=== PATIENT | female | born 2000 | race Two or more races ===

== ENCOUNTER 2022-11-05 00:10 | Inpatient (IN) ==
[2022-11-05] MEDS ORDERED: LIDOCAINE 1% LOCAL 20 ML VIAL INFIL PRN (01:11)
[2022-11-05] MEDS ORDERED: OXYTOCIN 30 UNITS/500 ML BAG IV PRN ×2 (01:11→01:13)
--- NOTE | 2022-11-05 01:15 | History & Physical Report ---
Date of Service November 05, 2022 Assessment & Plan (1) SROM (spontaneous rupture of membranes): (2) with 39 completed weeks gestation: Plan fetus category one. Admit for srom. Discussed plan of care with reconciling clerk. Would plan to allow some time for normal labor and progress. If by 6 hours s/p srom, not making any progress, would recommend pitocin. Explained what pit is and does. Will explain her pain control options. Although he speaks some Luxembourger, she speaks and understands really none and so communication will need to be by reconciling clerk. Per records, we have had difficulty getting a Uzebek reconciling clerk at times but fortunately have one now. History of Present Illness Chief Complaint: srom Primary Care Provider: Apoorva Gallardo MD Patient is a 22yo[place] female who presents to labor and delivery at 39 5/7 weeks with complaints of leaking of fluid since 11pm. She notes low back pain for a couple of days and some discomfort that comes and goes. She had a little bit of bleeding. +fm. Having a boy. and Delivery Plans Late care start at 16wk Speaks CAMBODIAN, needs reconciling clerk Flu shot given 05/25/22 SB OB Labs: Blood Type B Positive 05/25/22 Antibody Screen NEGATIVE 05/25/22 Hemoglobin 11.5 g/dl (12.0-16.0) L 08/15/22 Hematocrit 33.4 % (34.1-44.9) L 08/15/22 Mean Corpuscular Volume 90.8 fL (80.0-100.0) 05/25/22 Platelet Count 193 K/uL (130-400) 05/25/22 Rubella IgG Antibody Immune (Immune) 05/25/22 Rapid Plasma Reagin Nonreactive (Nonreactive) 05/25/22 Hepatitis B Surface Antigen. NON-REACTIVE (NON-REACTIVE) 05/25/22 Hepatitis C Antibody (EIA) NON-REACTIVE (NON-REACTIVE) 05/25/22 HIV (1&2) Ag and Ab Confirmation NON-REACTIVE (NON-REACTIVE) 05/25/22 Glucose 1 Hour 50 gm Load 154 mg/dl (70-130) H 05/25/22 Maternal Serum Alpha Fetoprotein 32.1 ng/mL 05/25/22 OB Optional Labs: A Chlamydia trachomatis RNA Not Detected (NotDetected) 05/25/22 Neisseria gonorrhoeae RNA Not Detected (NotDetected) 05/25/22 Alpha Fetoprotein Triple Screen SEE NOTE 05/25/22 Labs Reviewed: cfdna-low risk--mln afp neg gbs neg 2 hr gtt x 2 nl Allergies Allergy/AdvReac Type Severity Reaction Status Date / Time No Known Allergies Allergy Verified 11/04/22 09:17 Home Medications Medication Instructions Recorded Confirmed Type prenat.vits,briana,xqf-mpve-sqiry 1 tab PO DAILY 05/20/22 11/05/22 History Patient History Medical History Patient denies significant medical history Surgical History No history of previous surgery S/P appendectomy Pt denies surgical history, but has either a large stretch hazel or RLQ scar suspicious for open appy? 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 Physical Exam Constitutional: WD/WN, vitals as above Cardiovascular: Extremities: + edema (+1); no calf tenderness Gastrointestinal (Abdomen): soft, gravid, nt Psychiatric: A+Ox3, euthymic affect Genitourinary: sse--large amount of mucous and fluid noted sve--1+/50/-2 toco--q5-8,om efm--130s with mod variability, accels to 150s, no decels Results & Data Vital Signs (Past 12 Hours) Vital Signs Temp Pulse Resp BP 11/05/22 00:29 87 127/81 11/05/22 00:25 36.3 C L 18 Code Status & VTE Plan VTE Prophylaxis Plan VTE Prophylaxis will be ordered: No Coding Level of Care Code None Diagnoses SROM (spontaneous rupture of membranes) with 39 completed weeks gestation Z3A.39
[2022-11-05 02:58] LABS: Hematocrit (blood only) 32.8 % (37.0-47.0); Hemoglobin 10.6 g/dl (12.0-16.0); Mean Corpuscular Hemoglobin 27.1 pg (25.0-34.0); Mean Corpuscular Hgb Conc 32.3 g/dL (32.0-36.0); Mean Corpuscular Volume 83.9 fL (80.0-100.0); Mean Platelet Volume 11.5 fL (9.4-12.4); Platelet Count 217 K/uL (130-400); RDW Coefficient of Variation 12.9 % (11.5-14.5); RDW Standard Deviation 38.7 fL (36.4-46.3); Red Blood Count 3.91 M/uL (4.20-5.40)
[2022-11-05] MEDS ORDERED: BUPIVACAINE 0.25% PF 30 ML VIAL ONE ×3 (05:10→21:19)
[2022-11-05] MEDS ORDERED: fentaNYL citrate PF 100 MCG/2 ML VIAL ONE ×3 (05:10→21:19)
[2022-11-05] MEDS ORDERED: LIDOCAINE 2%/EPINEPHRINE 1:200,000 20 ML PF ONE ×2 (05:10→07:23)
--- NOTE | 2022-11-05 05:13 | Labor Progress Brief Note ---
Date of Service November 05, 2022 Subjective Patient resting, not really feeling contractions. Assessment & Plan (1) SROM (spontaneous rupture of membranes): (2) with 39 completed weeks gestation: Plan start pitocin, fetus category one. Admission and Anticipated Discharge Date Admission Date: November 05, 2022 Physical Exam Physical Exam: cx--2/80/-2, bulging bag, but feel head toco--q2-4min efm--140s with mod variability, accels to 160s, no decels Results & Data Vital Signs (Past 12 Hours) Vital Signs Temp Pulse Resp BP 11/05/22 04:44 18 11/05/22 04:44 36.8 C 18 11/05/22 04:03 68 11/05/22 04:03 122/75 11/05/22 02:28 18 11/05/22 02:28 36.8 C 18 11/05/22 00:29 87 127/81 11/05/22 00:25 36.3 C L 18 Coding Level of Care Code None Diagnoses SROM (spontaneous rupture of membranes) with 39 completed weeks gestation Z3A.39
[2022-11-05] MEDS: LACTATED RINGER'S 1,000 ML IV PRN ×5 (05:39→20:11)
[2022-11-05] MEDS: ePHEDrine sulfate 50 MG/ML AMP ONE ×2 (05:48→09:59)
[2022-11-05] MEDS: SODIUM CHLORIDE 0.9% PF INJ 10 ML VIAL ONE ×2 (05:49→08:50)
[2022-11-05] MEDS: fentaNYL 2MCG/ML ROPIVACAINE 1.25MG/ML 100 ML BAG EPI ONE ×3 (05:50→06:43)
[2022-11-05] MEDS ORDERED: ePHEDrine sulfate 50 MG/ML AMP ONE (07:22)
[2022-11-05] MEDS ORDERED: SODIUM CHLORIDE 0.9% PF INJ 10 ML VIAL ONE (07:23)
[2022-11-05] MEDS ORDERED: fentaNYL 2MCG/ML ROPIVACAINE 1.25MG/ML 100 ML BAG EPI ONE (07:24)
--- NOTE | 2022-11-05 08:01 | Anesthesiology Consultation ---
Date of Service November 05, 2022 Assessment & Plan Chart Review Chart Review: Acceptable Risk for Labor Epidural Consults Requested none History Height/Weight Weight: 80 kg Allergies Allergy/AdvReac Type Severity Reaction Status Date / Time No Known Allergies Allergy Verified 11/04/22 09:17 Medications Home Medications Medication Instructions Recorded Confirmed Last Taken prenat.vits,briana,qcm-flkg-tlppl 1 tab PO DAILY 05/20/22 11/05/22 Unknown Active Medications Generic Name Dose Route Start Last Admin Trade Name Freq PRN Reason Stop Dose Admin Lactated Ringer's 1,000 mls @ 125 mls/hr 11/05/22 01:11 11/05/22 07:50 Lr IV 11/07/22 01:10 125 mls/hr .Q8H PRN Infusion L&D Protocol Protocol Oxytocin 30 units in 500 mls @ 3 mls/hr 11/05/22 01:13 11/05/22 06:30 Pitocin IV 11/07/22 01:12 0.18 units/hr .Q24H PRN 3 mls/hr Labor Induction/Augmentation Titration Protocol 0.18 UNITS/HR Past Medical History Medical History Patient denies significant medical history Past Family History Family History Denies family history of Ovarian cancer Breast cancer Colorectal cancer Past Surgical History Surgical History No history of previous surgery S/P appendectomy Pt denies surgical history, but has either a large stretch hazel or RLQ scar suspicious for open appy? Social History Smoking Status: Never smoker Hx Alcohol Use: No Hx Substance Use: No Physical Exam Vital Signs Last Vital Signs Temp 36.8 C 11/05/22 04:44 Pulse 69 11/05/22 07:59 Resp 18 11/05/22 04:44 BP 119/61 11/05/22 07:59 Pulse Ox 99 11/05/22 07:57 Testing Laboratory Results 11/05/22 01:50
[2022-11-05] MEDS ORDERED: NALOXONE HCL 1 MG in SODIUM CHLORIDE 0.9% 1000ML 1,000 ML IV PRN (08:08)
[2022-11-05] MEDS ORDERED: NALBUPHINE HCL INJ 10 MG/ML AMP IV PRN (08:08)
[2022-11-05] MEDS ORDERED: ePHEDrine sulfate 50 MG/ML AMP IV PRN (08:08)
[2022-11-05] MEDS ORDERED: diphenhydrAMINE 50 MG/ML VIAL IV PRN (08:08)
[2022-11-05] MEDS ORDERED: NALOXONE HCL 0.4 MG/1 ML VIAL/CARP IV PRN (08:08)
--- NOTE | 2022-11-05 11:50 | Labor Progress Brief Note ---
Date of Service November 05, 2022 Subjective Comfortable with epidural Assessment & Plan (1) SROM (spontaneous rupture of membranes): Plan: Utilize pit to hold adequate MVU for 2 hours and then will reassess if no earlier indication to do so, as there wouldn't be anything else to change in patient's plan until then. status reassuring and patient comfortable. Admission and Anticipated Discharge Date Admission Date: November 05, 2022 Physical Exam Genitourinary: Has only just begun to be adequate MVU Cervix therefore not reassessed at this time FHT Cat 1 [place] Q1-3 with irregular and grouped pattern Results & Data Vital Signs (Past 12 Hours) Vital Signs Temp Pulse Resp BP Pulse Ox O2 Del Method 11/05/22 07:10 98.2 F 20 11/05/22 07:10 Room Air 11/05/22 11:42 99 11/05/22 11:42 83 11/05/22 11:31 16 11/05/22 11:31 16 11/05/22 11:37 98 11/05/22 11:37 79 11/05/22 11:32 98 11/05/22 11:32 84 11/05/22 11:27 99 11/05/22 11:27 77 11/05/22 11:22 98 11/05/22 11:22 80 11/05/22 11:20 75 11/05/22 11:20 106/54 L 11/05/22 11:17 99 11/05/22 11:17 80 11/05/22 11:00 18 11/05/22 11:00 98.6 F 18 11/05/22 11:12 98 11/05/22 11:12 77 11/05/22 11:00 18 11/05/22 11:00 98.6 F 18 11/05/22 11:07 98 11/05/22 11:07 83 11/05/22 11:04 67 11/05/22 11:04 130/63 11/05/22 11:02 98 11/05/22 11:02 69 11/05/22 10:57 99 11/05/22 10:57 70 11/05/22 10:52 97 11/05/22 10:52 68 11/05/22 10:49 67 11/05/22 10:49 119/62 11/05/22 10:47 99 11/05/22 10:47 69 11/05/22 10:42 98 11/05/22 10:42 72 11/05/22 10:32 16 11/05/22 10:32 16 11/05/22 10:37 99 11/05/22 10:37 72 11/05/22 10:34 72 11/05/22 10:34 113/55 L 11/05/22 10:32 98 11/05/22 10:32 69 11/05/22 10:01 16 11/05/22 10:01 16 11/05/22 10:27 98 11/05/22 10:27 70 11/05/22 10:22 98 11/05/22 10:22 77 11/05/22 10:19 73 11/05/22 10:19 110/61 11/05/22 10:17 99 11/05/22 10:17 74 11/05/22 10:12 97 11/05/22 10:12 71 11/05/22 10:07 98 11/05/22 10:07 69 11/05/22 10:04 74 11/05/22 10:04 121/58 L 11/05/22 10:02 98 11/05/22 10:02 72 11/05/22 09:57 98 11/05/22 09:57 71 11/05/22 09:52 98 11/05/22 09:52 71 11/05/22 09:49 67 11/05/22 09:49 123/57 L 11/05/22 09:47 98 11/05/22 09:47 70 11/05/22 09:42 98 11/05/22 09:42 68 11/05/22 09:30 16 11/05/22 09:30 16 11/05/22 09:37 98 11/05/22 09:37 71 11/05/22 09:00 18 11/05/22 09:00 18 11/05/22 09:33 67 11/05/22 09:33 108/56 L 11/05/22 09:32 98 11/05/22 09:32 68 11/05/22 09:27 99 11/05/22 09:27 77 11/05/22 09:26 114/65 11/05/22 09:22 99 11/05/22 09:22 69 11/05/22 09:19 70 11/05/22 09:19 109/58 L 11/05/22 09:17 98 11/05/22 09:17 84 11/05/22 09:07 16 11/05/22 09:07 98.2 F 16 11/05/22 09:12 99 11/05/22 09:12 78 11/05/22 09:07 100 11/05/22 09:07 82 11/05/22 09:02 100 11/05/22 09:02 76 11/05/22 09:03 76 11/05/22 09:03 119/71 11/05/22 09:01 76 11/05/22 09:01 126/77 11/05/22 08:57 97 11/05/22 08:57 82 11/05/22 08:58 87/56 L 11/05/22 08:56 92 11/05/22 08:55 82 11/05/22 08:56 84 11/05/22 08:55 88/52 L 11/05/22 08:52 96 11/05/22 08:52 77 11/05/22 08:48 69 11/05/22 08:48 87/48 L 11/05/22 08:47 96 11/05/22 08:47 72 11/05/22 07:32 16 11/05/22 07:32 16 11/05/22 08:01 18 11/05/22 08:01 18 11/05/22 08:33 16 11/05/22 08:33 16 11/05/22 08:42 97 11/05/22 08:42 73 11/05/22 08:37 98 11/05/22 08:37 79 11/05/22 08:35 74 11/05/22 08:35 92/51 L 11/05/22 08:32 100 11/05/22 08:32 86 11/05/22 08:27 96 11/05/22 08:27 71 11/05/22 08:22 97 11/05/22 08:22 73 11/05/22 08:17 100 11/05/22 08:17 69 11/05/22 08:16 86 11/05/22 08:16 123/68 11/05/22 08:12 100 11/05/22 08:12 77 03/30/23 08:11 68 11/05/22 08:11 121/64 11/05/22 08:09 68 11/05/22 08:09 118/67 11/05/22 08:07 100 11/05/22 08:07 85 11/05/22 08:07 119/70 11/05/22 08:05 80 11/05/22 08:05 111/59 L 11/05/22 08:02 100 11/05/22 08:02 82 11/05/22 08:03 67 11/05/22 08:03 109/68 11/05/22 08:01 69 11/05/22 08:01 115/58 L 11/05/22 07:59 69 11/05/22 07:59 119/61 11/05/22 07:57 99 11/05/22 07:57 76 11/05/22 07:57 120/58 L 11/05/22 07:55 79 11/05/22 07:55 121/59 L 11/05/22 07:53 80 11/05/22 07:53 115/57 L 11/05/22 07:52 100 11/05/22 07:52 82 11/05/22 07:50 81 11/05/22 07:50 136/61 11/05/22 07:49 83 L 11/05/22 07:49 87 11/05/22 07:47 100 11/05/22 07:47 89 11/05/22 07:47 167/73 H 11/05/22 07:46 86 11/05/22 07:46 159/93 H 11/05/22 07:42 100 11/05/22 07:42 100 H 11/05/22 07:37 100 11/05/22 07:37 90 11/05/22 07:32 100 11/05/22 07:32 77 11/05/22 07:31 70 11/05/22 07:31 107/69 11/05/22 07:27 99 11/05/22 07:27 74 11/05/22 07:22 99 11/05/22 07:22 81 11/05/22 07:05 75 11/05/22 07:05 122/65 11/05/22 05:41 67 11/05/22 05:41 124/68 03/30/23 04:44 18 11/05/22 04:44 98.2 F 18 11/05/22 04:03 68 11/05/22 04:03 122/75 11/05/22 02:28 18 11/05/22 02:28 98.2 F 18 11/05/22 00:29 87 127/81 11/05/22 00:25 97.3 F L 18 Coding Level of Care Code None Diagnoses SROM (spontaneous rupture of membranes)
--- NOTE | 2022-11-05 13:31 | Labor Progress Brief Note ---
Date of Service November 05, 2022 Subjective Comfortable with epidural Assessment & Plan (1) SROM (spontaneous rupture of membranes): Plan: Continue pitocin, epidural, change is occurring. Admission and Anticipated Discharge Date Admission Date: November 05, 2022 Physical Exam Genitourinary: Fht Cat 1 [place] Q2 /-1 copious clear LOF ongoing Results & Data Vital Signs (Past 12 Hours) Vital Signs Temp Pulse Resp BP Pulse Ox O2 Del Method 11/05/22 07:10 98.2 F 20 11/05/22 07:10 Room Air 11/05/22 13:27 98 11/05/22 13:27 76 11/05/22 13:24 93 11/05/22 13:24 98 H 11/05/22 13:22 98 11/05/22 13:22 92 H 11/05/22 13:17 98 11/05/22 13:17 79 11/05/22 13:15 16 11/05/22 13:15 98.6 F 16 11/05/22 13:12 96 11/05/22 13:12 87 11/05/22 13:00 16 11/05/22 13:00 16 11/05/22 13:07 96 11/05/22 13:07 83 11/05/22 13:02 96 11/05/22 13:02 84 11/05/22 12:57 97 11/05/22 12:57 82 11/05/22 12:30 16 11/05/22 12:30 16 11/05/22 12:52 98 11/05/22 12:52 82 11/05/22 12:47 99 11/05/22 12:47 82 11/05/22 12:42 98 11/05/22 12:42 75 11/05/22 12:37 98 11/05/22 12:37 75 11/05/22 12:32 100 11/05/22 12:32 86 11/05/22 12:27 96 11/05/22 12:27 74 11/05/22 12:22 97 11/05/22 12:22 73 11/05/22 12:18 68 11/05/22 12:18 112/55 L 11/05/22 12:17 96 11/05/22 12:17 68 11/05/22 12:12 97 11/05/22 12:12 71 11/05/22 12:05 18 11/05/22 12:05 18 11/05/22 12:07 97 11/05/22 12:07 72 11/05/22 12:02 96 11/05/22 12:02 85 11/05/22 11:57 98 11/05/22 11:57 85 11/05/22 11:52 97 11/05/22 11:52 80 11/05/22 11:48 82 11/05/22 11:48 95/50 L 11/05/22 11:47 97 11/05/22 11:47 81 11/05/22 11:42 99 11/05/22 11:42 83 11/05/22 11:31 16 11/05/22 11:31 16 11/05/22 11:37 98 11/05/22 11:37 79 11/05/22 11:32 98 11/05/22 11:32 84 11/05/22 11:27 99 11/05/22 11:27 77 11/05/22 11:22 98 11/05/22 11:22 80 11/05/22 11:20 75 11/05/22 11:20 106/54 L 11/05/22 11:17 99 11/05/22 11:17 80 11/05/22 11:00 18 11/05/22 11:00 98.6 F 18 11/05/22 11:12 98 11/05/22 11:12 77 11/05/22 11:00 18 11/05/22 11:00 98.6 F 18 11/05/22 11:07 98 11/05/22 11:07 83 11/05/22 11:04 67 11/05/22 11:04 130/63 11/05/22 11:02 98 11/05/22 11:02 69 11/05/22 10:57 99 11/05/22 10:57 70 11/05/22 10:52 97 11/05/22 10:52 68 11/05/22 10:49 67 11/05/22 10:49 119/62 11/05/22 10:47 99 11/05/22 10:47 69 11/05/22 10:42 98 11/05/22 10:42 72 11/05/22 10:32 16 11/05/22 10:32 16 11/05/22 10:37 99 11/05/22 10:37 72 11/05/22 10:34 72 11/05/22 10:34 113/55 L 11/05/22 10:32 98 11/05/22 10:32 69 11/05/22 10:01 16 11/05/22 10:01 16 11/05/22 10:27 98 11/05/22 10:27 70 11/05/22 10:22 98 11/05/22 10:22 77 11/05/22 10:19 73 11/05/22 10:19 110/61 11/05/22 10:17 99 11/05/22 10:17 74 11/05/22 10:12 97 11/05/22 10:12 71 11/05/22 10:07 98 11/05/22 10:07 69 11/05/22 10:04 74 11/05/22 10:04 121/58 L 11/05/22 10:02 98 11/05/22 10:02 72 11/05/22 09:57 98 11/05/22 09:57 71 11/05/22 09:52 98 11/05/22 09:52 71 11/05/22 09:49 67 11/05/22 09:49 123/57 L 11/05/22 09:47 98 11/05/22 09:47 70 11/05/22 09:42 98 11/05/22 09:42 68 11/05/22 09:30 16 11/05/22 09:30 16 11/05/22 09:37 98 11/05/22 09:37 71 11/05/22 09:00 18 11/05/22 09:00 18 11/05/22 09:33 67 11/05/22 09:33 108/56 L 11/05/22 09:32 98 11/05/22 09:32 68 11/05/22 09:27 99 11/05/22 09:27 77 11/05/22 09:26 114/65 11/05/22 09:22 99 11/05/22 09:22 69 11/05/22 09:19 70 11/05/22 09:19 109/58 L 11/05/22 09:17 98 11/05/22 09:17 84 11/05/22 09:07 16 11/05/22 09:07 98.2 F 16 11/05/22 09:12 99 11/05/22 09:12 78 11/05/22 09:07 100 11/05/22 09:07 82 11/05/22 09:02 100 11/05/22 09:02 76 11/05/22 09:03 76 11/05/22 09:03 119/71 11/05/22 09:01 76 11/05/22 09:01 126/77 11/05/22 08:57 97 11/05/22 08:57 82 11/05/22 08:58 87/56 L 11/05/22 08:56 92 11/05/22 08:55 82 11/05/22 08:56 84 11/05/22 08:55 88/52 L 11/05/22 08:52 96 11/05/22 08:52 77 11/05/22 08:48 69 11/05/22 08:48 87/48 L 11/05/22 08:47 96 11/05/22 08:47 72 11/05/22 07:32 16 11/05/22 07:32 16 11/05/22 08:01 18 11/05/22 08:01 18 11/05/22 08:33 16 11/05/22 08:33 16 11/05/22 08:42 97 11/05/22 08:42 73 11/05/22 08:37 98 11/05/22 08:37 79 11/05/22 08:35 74 11/05/22 08:35 92/51 L 11/05/22 08:32 100 11/05/22 08:32 86 11/05/22 08:27 96 11/05/22 08:27 71 11/05/22 08:22 97 11/05/22 08:22 73 11/05/22 08:17 100 11/05/22 08:17 69 11/05/22 08:16 86 11/05/22 08:16 123/68 11/05/22 08:12 100 11/05/22 08:12 77 11/05/22 08:11 68 11/05/22 08:11 121/64 11/05/22 08:09 68 11/05/22 08:09 118/67 11/05/22 08:07 100 11/05/22 08:07 85 11/05/22 08:07 119/70 11/05/22 08:05 80 11/05/22 08:05 111/59 L 11/05/22 08:02 100 11/05/22 08:02 82 11/05/22 08:03 67 11/05/22 08:03 109/68 11/05/22 08:01 69 11/05/22 08:01 115/58 L 11/05/22 07:59 69 11/05/22 07:59 119/61 11/05/22 07:57 99 11/05/22 07:57 76 11/05/22 07:57 120/58 L 11/05/22 07:55 79 11/05/22 07:55 121/59 L 11/05/22 07:53 80 11/05/22 07:53 115/57 L 11/05/22 07:52 100 11/05/22 07:52 82 11/05/22 07:50 81 11/05/22 07:50 136/61 11/05/22 07:49 83 L 11/05/22 07:49 87 11/05/22 07:47 100 11/05/22 07:47 89 11/05/22 07:47 167/73 H 11/05/22 07:46 86 11/05/22 07:46 159/93 H 11/05/22 07:42 100 11/05/22 07:42 100 H 11/05/22 07:37 100 11/05/22 07:37 90 11/05/22 07:32 100 11/05/22 07:32 77 11/05/22 07:31 70 11/05/22 07:31 107/69 11/05/22 07:27 99 11/05/22 07:27 74 11/05/22 07:22 99 11/05/22 07:22 81 11/05/22 07:05 75 11/05/22 07:05 122/65 11/05/22 05:41 67 11/05/22 05:41 124/68 11/05/22 04:44 18 11/05/22 04:44 98.2 F 18 11/05/22 04:03 68 11/05/22 04:03 122/75 11/05/22 02:28 18 11/05/22 02:28 98.2 F 18 Coding Level of Care Code None Diagnoses SROM (spontaneous rupture of membranes)
[2022-11-05] MEDS: fentaNYL 2MCG/ML ROPIVACAINE 1.25MG/ML 100 ML BAG EPI PRN ×2 (15:10→21:04)
--- NOTE | 2022-11-05 16:35 | Labor Progress Brief Note ---
Date of Service November 05, 2022 Subjective Comfortable with epidural Assessment & Plan (1) SROM (spontaneous rupture of membranes): Plan: Continue epidural, pitocin, ROM, making progress slowly but MVU either just adequate or just below. Continue to target 200-250. Admission and Anticipated Discharge Date Admission Date: November 05, 2022 Physical Exam Genitourinary: 5/100/-2 FHT Cat 1 [place] Q2 Pit @ 15 LOF clear [place], IUPC in place. Results & Data Vital Signs (Past 12 Hours) Vital Signs Temp Pulse Resp BP Pulse Ox O2 Del Method 11/05/22 07:10 98.2 F 20 11/05/22 07:10 Room Air 11/05/22 16:27 99 11/05/22 16:27 83 11/05/22 16:22 98 11/05/22 16:22 87 11/05/22 16:17 96 11/05/22 16:17 70 11/05/22 16:12 96 11/05/22 16:12 71 11/05/22 16:07 97 11/05/22 16:07 70 11/05/22 16:02 98 11/05/22 16:02 72 11/05/22 15:57 98 11/05/22 15:57 71 11/05/22 15:00 16 11/05/22 15:00 98.4 F 16 11/05/22 15:52 96 11/05/22 15:52 67 11/05/22 15:30 16 11/05/22 15:30 16 11/05/22 15:47 98 11/05/22 15:47 72 11/05/22 15:44 74 11/05/22 15:44 104/57 L 11/05/22 15:42 98 11/05/22 15:42 70 11/05/22 15:37 99 11/05/22 15:37 71 11/05/22 15:32 98 11/05/22 15:32 79 11/05/22 15:27 98 11/05/22 15:27 72 11/05/22 15:22 98 11/05/22 15:22 74 11/05/22 15:17 97 11/05/22 15:17 71 11/05/22 15:12 100 11/05/22 15:12 77 11/05/22 15:07 98 11/05/22 15:07 75 11/05/22 15:02 100 11/05/22 15:02 88 11/05/22 14:57 100 11/05/22 14:57 87 11/05/22 14:52 96 11/05/22 14:52 78 11/05/22 14:47 97 11/05/22 14:47 74 11/05/22 14:30 16 11/05/22 14:30 16 11/05/22 14:43 82 11/05/22 14:43 102/56 L 11/05/22 14:42 96 11/05/22 14:42 78 11/05/22 14:37 98 11/05/22 14:37 73 11/05/22 14:32 99 11/05/22 14:32 82 11/05/22 14:27 96 11/05/22 14:27 71 11/05/22 14:22 96 11/05/22 14:22 71 11/05/22 14:17 96 11/05/22 14:17 71 11/05/22 14:12 100 11/05/22 14:12 76 11/05/22 14:07 98 11/05/22 14:07 76 11/05/22 14:00 18 11/05/22 14:00 18 11/05/22 14:02 96 11/05/22 14:02 68 11/05/22 13:57 97 11/05/22 13:57 67 11/05/22 13:55 73 11/05/22 13:55 112/62 11/05/22 13:52 96 11/05/22 13:52 72 11/05/22 13:30 18 11/05/22 13:30 18 11/05/22 13:47 97 11/05/22 13:47 70 11/05/22 13:43 69 11/05/22 13:43 103/55 L 11/05/22 13:42 97 11/05/22 13:42 71 11/05/22 13:37 98 11/05/22 13:37 75 11/05/22 13:32 97 11/05/22 13:32 68 11/05/22 13:27 98 11/05/22 13:27 76 11/05/22 13:24 93 11/05/22 13:24 98 H 11/05/22 13:22 98 11/05/22 13:22 92 H 11/05/22 13:17 98 11/05/22 13:17 79 11/05/22 13:15 16 11/05/22 13:15 98.6 F 16 11/05/22 13:12 96 11/05/22 13:12 87 11/05/22 13:00 16 11/05/22 13:00 16 11/05/22 13:07 96 11/05/22 13:07 83 11/05/22 13:02 96 11/05/22 13:02 84 11/05/22 12:57 97 11/05/22 12:57 82 11/05/22 12:30 16 11/05/22 12:30 16 11/05/22 12:52 98 11/05/22 12:52 82 11/05/22 12:47 99 11/05/22 12:47 82 11/05/22 12:42 98 11/05/22 12:42 75 11/05/22 12:37 98 11/05/22 12:37 75 11/05/22 12:32 100 11/05/22 12:32 86 11/05/22 12:27 96 11/05/22 12:27 74 11/05/22 12:22 97 11/05/22 12:22 73 11/05/22 12:18 68 11/05/22 12:18 112/55 L 11/05/22 12:17 96 11/05/22 12:17 68 11/05/22 12:12 97 11/05/22 12:12 71 11/05/22 12:05 18 11/05/22 12:05 18 11/05/22 12:07 97 11/05/22 12:07 72 11/05/22 12:02 96 11/05/22 12:02 85 11/05/22 11:57 98 11/05/22 11:57 85 11/05/22 11:52 97 11/05/22 11:52 80 11/05/22 11:48 82 11/05/22 11:48 95/50 L 11/05/22 11:47 97 11/05/22 11:47 81 11/05/22 11:42 99 11/05/22 11:42 83 11/05/22 11:31 16 11/05/22 11:31 16 11/05/22 11:37 98 11/05/22 11:37 79 11/05/22 11:32 98 11/05/22 11:32 84 11/05/22 11:27 99 11/05/22 11:27 77 11/05/22 11:22 98 11/05/22 11:22 80 11/05/22 11:20 75 11/05/22 11:20 106/54 L 11/05/22 11:17 99 11/05/22 11:17 80 11/05/22 11:00 18 11/05/22 11:00 98.6 F 18 11/05/22 11:12 98 11/05/22 11:12 77 11/05/22 11:00 18 11/05/22 11:00 98.6 F 18 11/05/22 11:07 98 11/05/22 11:07 83 11/05/22 11:04 67 11/05/22 11:04 130/63 11/05/22 11:02 98 11/05/22 11:02 69 11/05/22 10:57 99 11/05/22 10:57 70 11/05/22 10:52 97 11/05/22 10:52 68 11/05/22 10:49 67 11/05/22 10:49 119/62 11/05/22 10:47 99 11/05/22 10:47 69 11/05/22 10:42 98 11/05/22 10:42 72 11/05/22 10:32 16 11/05/22 10:32 16 11/05/22 10:37 99 11/05/22 10:37 72 11/05/22 10:34 72 11/05/22 10:34 113/55 L 11/05/22 10:32 98 11/05/22 10:32 69 11/05/22 10:01 16 11/05/22 10:01 16 11/05/22 10:27 98 11/05/22 10:27 70 11/05/22 10:22 98 11/05/22 10:22 77 11/05/22 10:19 73 11/05/22 10:19 110/61 11/05/22 10:17 99 11/05/22 10:17 74 11/05/22 10:12 97 11/05/22 10:12 71 11/05/22 10:07 98 11/05/22 10:07 69 11/05/22 10:04 74 11/05/22 10:04 121/58 L 11/05/22 10:02 98 11/05/22 10:02 72 11/05/22 09:57 98 11/05/22 09:57 71 11/05/22 09:52 98 11/05/22 09:52 71 11/05/22 09:49 67 11/05/22 09:49 123/57 L 11/05/22 09:47 98 11/05/22 09:47 70 11/05/22 09:42 98 11/05/22 09:42 68 11/05/22 09:30 16 11/05/22 09:30 16 11/05/22 09:37 98 11/05/22 09:37 71 11/05/22 09:00 18 11/05/22 09:00 18 11/05/22 09:33 67 11/05/22 09:33 108/56 L 11/05/22 09:32 98 11/05/22 09:32 68 11/05/22 09:27 99 11/05/22 09:27 77 11/05/22 09:26 114/65 11/05/22 09:22 99 11/05/22 09:22 69 11/05/22 09:19 70 11/05/22 09:19 109/58 L 11/05/22 09:17 98 11/05/22 09:17 84 11/05/22 09:07 16 11/05/22 09:07 98.2 F 16 11/05/22 09:12 99 11/05/22 09:12 78 11/05/22 09:07 100 11/05/22 09:07 82 11/05/22 09:02 100 11/05/22 09:02 76 11/05/22 09:03 76 11/05/22 09:03 119/71 11/05/22 09:01 76 11/05/22 09:01 126/77 11/05/22 08:57 97 11/05/22 08:57 82 11/05/22 08:58 87/56 L 11/05/22 08:56 92 11/05/22 08:55 82 11/05/22 08:56 84 11/05/22 08:55 88/52 L 11/05/22 08:52 96 11/05/22 08:52 77 11/05/22 08:48 69 11/05/22 08:48 87/48 L 11/05/22 08:47 96 11/05/22 08:47 72 11/05/22 07:32 16 11/05/22 07:32 16 11/05/22 08:01 18 11/05/22 08:01 18 11/05/22 08:33 16 11/05/22 08:33 16 11/05/22 08:42 97 11/05/22 08:42 73 11/05/22 08:37 98 11/05/22 08:37 79 11/05/22 08:35 74 11/05/22 08:35 92/51 L 11/05/22 08:32 100 11/05/22 08:32 86 11/05/22 08:27 96 11/05/22 08:27 71 11/05/22 08:22 97 11/05/22 08:22 73 11/05/22 08:17 100 11/05/22 08:17 69 11/05/22 08:16 86 11/05/22 08:16 123/68 11/05/22 08:12 100 11/05/22 08:12 77 11/05/22 08:11 68 11/05/22 08:11 121/64 11/05/22 08:09 68 11/05/22 08:09 118/67 11/05/22 08:07 100 11/05/22 08:07 85 11/05/22 08:07 119/70 11/05/22 08:05 80 11/05/22 08:05 111/59 L 11/05/22 08:02 100 11/05/22 08:02 82 11/05/22 08:03 67 11/05/22 08:03 109/68 11/05/22 08:01 69 11/05/22 08:01 115/58 L 11/05/22 07:59 69 11/05/22 07:59 119/61 11/05/22 07:57 99 11/05/22 07:57 76 11/05/22 07:57 120/58 L 11/05/22 07:55 79 11/05/22 07:55 121/59 L 11/05/22 07:53 80 11/05/22 07:53 115/57 L 11/05/22 07:52 100 11/05/22 07:52 82 11/05/22 07:50 81 11/05/22 07:50 136/61 11/05/22 07:49 83 L 11/05/22 07:49 87 11/05/22 07:47 100 11/05/22 07:47 89 11/05/22 07:47 167/73 H 11/05/22 07:46 86 11/05/22 07:46 159/93 H 11/05/22 07:42 100 11/05/22 07:42 100 H 11/05/22 07:37 100 11/05/22 07:37 90 11/05/22 07:32 100 11/05/22 07:32 77 11/05/22 07:31 70 11/05/22 07:31 107/69 11/05/22 07:27 99 11/05/22 07:27 74 11/05/22 07:22 99 11/05/22 07:22 81 11/05/22 07:05 75 11/05/22 07:05 122/65 11/05/22 05:41 67 11/05/22 05:41 124/68 11/05/22 04:44 18 11/05/22 04:44 98.2 F 18 Coding Level of Care Code None Diagnoses SROM (spontaneous rupture of membranes)
[2022-11-05] MEDS ORDERED: Nursing to Pharmacy Communication SCH (16:45)
--- NOTE | 2022-11-05 21:31 | Anesthesia Procedure Note ---
Date of Service November 05, 2022 Anesthesia Epidural Re-Dose Vital Signs Temp Pulse Resp BP Pulse Ox O2 Del Method 98.8 F 90 16 104/55 L 99 Room Air 11/05/22 20:58 11/05/22 21:28 11/05/22 20:58 11/05/22 21:28 11/05/22 21:27 11/05/22 07:10 Notes Pain Intensity: 10 Dilatation (cm): 6.0 Effacement (%): 100 Called by nursing to evaluate epidural as the patient is having increased pain. The epidural was re-dosed with the following medications after negative aspiration of the epidural catheter for CSF/HEME. 3mL of 0.25% Bupivacaine, 75 mcg of fentanyl After Epidural Re-Dose Mental Status: alert / awake / arousable Pain: improving with treatment Airway Patency, RR, SpO2: stable & adequate BP & HR: stable & adequate
[2022-11-06] MEDS: LACTATED RINGER'S 1,000 ML IV PRN (00:51)
[2022-11-06] MEDS: fentaNYL 2MCG/ML ROPIVACAINE 1.25MG/ML 100 ML BAG EPI PRN (01:51)
[2022-11-06] MEDS ORDERED: AMPICILLIN/SULBACTAM SOD 3,000 MG in 0.9 % SODIUM CHLORIDE 100 ML IV STA (02:42)
[2022-11-06] MEDS ORDERED: ACETAMINOPHEN 650 MG SUPP PR STA (02:46)
--- NOTE | 2022-11-06 04:34 | Labor Progress Brief Note ---
Date of Service November 06, 2022 Subjective Interim events since last note. Patient was comfortable with epidural and steadily dilated to nearly complete. She and FOB were counseled via records associate about what to expect when she became completely dilated, how pushing would work, positioning to expect, and questions were answered. The patient was then given several additional hours to complete dilation and labor down. The patient developed fever / suspected chorioamnionitis around 0230, for which Unasyn IV and tylenol MD were given. The patient was started pushing around 3am from +2 station, in OA position and with adequate-feeling pelvis. Fluid still clear. I have been in the room pushing with the patient for the majority of her second stage, and at the nursing station right outside the room for the remainder. During early pushing, records associate remained available and assisted with communication. After some time the patient was able to organize her pushing efforts and became very effective. tachycardia present but variability always good. Hosiery Repairer service became unavailable "due to scheduled maintenance" and further translation needed to be done via . Around 0415 the patient's tachycardia had been persistent and increased to consistently at or above 180s, and variability between contractions had been seen to decrease enough, that I began the conversation with patient and about options other than . I discussed forceps to assist her in delivering vaginally, with risks of using those for both fetus and mom, and also discussed moving directly to . We also discussed that she can continue to push, however I made clear that I have not yet seen significant progress downwards from +2 station where she began; there has been development of caput but only a small amount of true descent, to +3 with contractions but still not . The confirmed his understanding of my counseling by saying back to me what I had told them about the above options, then translated to his . He relayed that she did not want to agree to forceps or at this time and wanted to keep pushing. They were clearly aware that I had explained the elevated heart rate meant distress, per his speaking this back to me. Her next pushing effort after this discussion did appear a bit more effective than the prior few. Efforts continue at this time per patient wishes. Assessment & Plan Admission and Anticipated Discharge Date Admission Date: November 05, 2022 Results & Data Vital Signs (Past 12 Hours) Vital Signs Temp Pulse Resp BP Pulse Ox 11/06/22 04:20 120 H 106/50 L 11/06/22 04:17 105 H 97 11/06/22 04:12 104 H 97 11/06/22 04:11 142 H 93 11/06/22 04:07 150 H 97 11/06/22 04:02 151 H 97 11/06/22 03:57 105 H 97 11/06/22 03:52 106 H 98 11/06/22 03:47 110 H 98 11/06/22 03:48 127 H 87 L 11/06/22 03:42 83 L 11/06/22 03:42 122 H 11/06/22 03:42 126 H 92 11/06/22 03:37 114 H 97 11/06/22 03:36 131 H 89 L 11/06/22 03:32 113 H 98 11/06/22 03:27 108 H 98 11/06/22 03:22 115 H 98 11/06/22 03:20 113 H 88 L 11/06/22 03:19 117 H 118/59 L 11/06/22 03:17 131 H 80 L 11/06/22 03:12 102 H 100 11/06/22 03:13 123 H 91 11/06/22 03:07 98 H 100 11/06/22 03:06 111 H 92 11/06/22 03:02 97 H 98 11/06/22 02:57 103 H 99 11/06/22 02:52 101 H 99 11/06/22 02:47 97 H 99 11/06/22 02:42 93 H 98 11/06/22 02:41 102.2 F H 11/06/22 02:37 93 H 99 11/06/22 02:32 93 H 99 11/06/22 02:27 98 H 100 11/06/22 02:22 90 100 11/06/22 02:19 98 H 116/79 11/06/22 02:17 90 99 11/06/22 02:12 90 99 11/06/22 02:07 98 H 100 11/06/22 02:02 101 H 99 11/06/22 01:57 123 H 98 11/06/22 01:52 106 H 99 11/06/22 01:50 108 H 123/56 L 11/06/22 01:47 106 H 100 11/06/22 01:42 110 H 98 11/06/22 01:37 107 H 99 11/06/22 01:32 108 H 100 11/06/22 01:27 97 H 99 11/06/22 01:22 95 H 99 11/06/22 01:18 111 H 101/58 L 11/06/22 01:17 101 H 100 11/06/22 01:12 100 H 100 11/06/22 01:07 106 H 100 11/06/22 01:02 101 H 100 11/06/22 00:57 106 H 100 11/06/22 00:52 16 11/06/22 00:52 100.0 F H 106 H 16 100 11/06/22 00:50 102 H 114/56 L 11/06/22 00:47 96 H 99 11/06/22 00:42 104 H 100 11/06/22 00:37 103 H 100 11/06/22 00:32 102 H 99 11/06/22 00:29 110 H 90 11/06/22 00:27 103 H 99 11/06/22 00:22 103 H 99 11/06/22 00:19 113 H 121/59 L 11/06/22 00:17 111 H 99 11/06/22 00:12 104 H 99 11/06/22 00:09 102 H 92 11/06/22 00:07 110 H 100 11/06/22 00:02 112 H 100 11/05/22 23:59 91 11/05/22 23:59 110 H 11/05/22 23:57 97 11/05/22 23:57 106 H 11/05/22 23:52 99 11/05/22 23:52 93 H 11/05/22 23:49 90 11/05/22 23:49 101/58 L 11/05/22 23:47 98 11/05/22 23:47 94 H 11/05/22 23:42 98 11/05/22 23:42 92 H 11/05/22 23:37 97 11/05/22 23:37 79 11/05/22 23:32 97 11/05/22 23:32 86 11/05/22 23:27 98 11/05/22 23:27 90 11/05/22 23:22 98 11/05/22 23:22 84 11/05/22 23:00 16 03/30/23 23:00 99.1 F 16 11/05/22 23:19 84 11/05/22 23:19 100/54 L 11/05/22 23:17 99 11/05/22 23:17 87 11/05/22 23:12 98 11/05/22 23:12 84 11/05/22 23:07 99 11/05/22 23:07 87 11/05/22 23:02 99 11/05/22 23:02 101 H 11/05/22 22:57 98 11/05/22 22:57 86 11/05/22 22:52 98 11/05/22 22:52 86 11/05/22 22:47 98 11/05/22 22:47 81 11/05/22 22:47 130/63 11/05/22 22:46 90 11/05/22 22:46 129/66 11/05/22 22:43 84 11/05/22 22:43 134/71 11/05/22 22:42 98 11/05/22 22:42 84 11/05/22 22:41 86 11/05/22 22:41 133/70 11/05/22 22:40 82 11/05/22 22:40 128/70 11/05/22 22:37 100 11/05/22 22:37 87 11/05/22 22:35 80 11/05/22 22:35 129/66 11/05/22 22:33 76 11/05/22 22:33 132/63 11/05/22 22:32 98 11/05/22 22:32 79 11/05/22 22:32 77 11/05/22 22:32 127/61 11/05/22 22:30 83 11/05/22 22:30 123/60 11/05/22 22:27 99 11/05/22 22:27 75 11/05/22 22:27 127/75 11/05/22 22:26 93 11/05/22 22:25 82 11/05/22 22:26 79 11/05/22 22:25 125/77 11/05/22 22:24 77 11/05/22 22:24 125/73 11/05/22 22:22 100 11/05/22 22:22 77 11/05/22 22:19 74 03/30/23 22:19 129/69 11/05/22 22:17 98 11/05/22 22:17 78 11/05/22 22:17 128/68 11/05/22 22:15 77 11/05/22 22:15 130/69 11/05/22 22:14 92 11/05/22 22:14 79 11/05/22 22:13 77 11/05/22 22:13 133/71 11/05/22 22:12 100 11/05/22 22:12 80 11/05/22 22:11 75 11/05/22 22:11 128/68 11/05/22 22:09 73 11/05/22 22:09 124/67 11/05/22 22:07 99 11/05/22 22:07 76 11/05/22 22:07 125/67 11/05/22 22:06 91 11/05/22 22:05 76 11/05/22 22:06 75 11/05/22 22:05 122/64 11/05/22 22:03 77 11/05/22 22:03 119/61 11/05/22 22:02 99 11/05/22 22:02 75 11/05/22 22:01 77 11/05/22 22:01 119/62 11/05/22 22:00 74 11/05/22 22:00 114/60 11/05/22 21:57 100 11/05/22 21:57 74 11/05/22 21:58 73 11/05/22 21:58 117/67 11/05/22 21:55 80 11/05/22 21:55 121/71 11/05/22 21:53 75 11/05/22 21:53 116/62 11/05/22 21:52 97 11/05/22 21:52 76 11/05/22 21:51 80 11/05/22 21:51 123/66 11/05/22 21:50 80 11/05/22 21:50 114/57 L 11/05/22 21:47 98 11/05/22 21:47 79 11/05/22 21:47 116/68 11/05/22 21:45 81 11/05/22 21:45 112/67 11/05/22 21:44 80 11/05/22 21:44 107/60 11/05/22 21:42 97 11/05/22 21:42 80 11/05/22 21:42 111/59 L 11/05/22 21:40 74 11/05/22 21:40 108/63 11/05/22 21:37 97 11/05/22 21:37 86 11/05/22 21:38 83 11/05/22 21:38 115/83 11/05/22 21:36 94 H 11/05/22 21:36 112/53 L 11/05/22 21:32 99 11/05/22 21:32 95 H 11/05/22 21:32 92 H 11/05/22 21:32 100/50 L 11/05/22 21:29 90 11/05/22 21:29 109/57 L 11/05/22 21:27 99 11/05/22 21:27 88 11/05/22 21:28 90 11/05/22 21:28 104/55 L 11/05/22 21:25 98 H 11/05/22 21:25 115/62 11/05/22 21:22 98 11/05/22 21:22 81 11/05/22 21:17 98 11/05/22 21:17 92 H 11/05/22 21:12 99 11/05/22 21:12 89 11/05/22 21:08 93 11/05/22 21:08 90 11/05/22 21:07 99 11/05/22 21:07 89 11/05/22 21:02 100 11/05/22 21:02 90 11/05/22 21:00 91 11/05/22 21:00 90 11/05/22 20:58 16 11/05/22 20:58 98.8 F 16 11/05/22 20:57 99 11/05/22 20:57 93 H 11/05/22 20:52 99 11/05/22 20:52 93 H 11/05/22 20:47 100 11/05/22 20:47 88 11/05/22 20:44 93 H 11/05/22 20:44 98/53 L 11/05/22 20:42 99 11/05/22 20:42 91 H 11/05/22 20:37 98 11/05/22 20:37 90 11/05/22 20:32 99 11/05/22 20:32 98 H 11/05/22 20:27 100 11/05/22 20:27 93 H 11/05/22 20:22 100 11/05/22 20:22 100 H 11/05/22 20:17 99 11/05/22 20:17 96 H 11/05/22 20:17 94 11/05/22 20:17 97 H 11/05/22 20:12 99 11/05/22 20:12 92 H 11/05/22 20:07 100 11/05/22 20:07 109 H 11/05/22 20:02 100 11/05/22 20:02 95 H 11/05/22 19:57 100 11/05/22 19:57 90 11/05/22 19:52 99 11/05/22 19:52 88 11/05/22 19:47 98 11/05/22 19:47 88 11/05/22 19:44 90 11/05/22 19:44 115/70 11/05/22 19:42 97 11/05/22 19:42 89 11/05/22 19:37 98 11/05/22 19:37 88 11/05/22 19:32 97 11/05/22 19:32 81 11/05/22 19:27 97 11/05/22 19:27 84 11/05/22 19:22 98 11/05/22 19:22 86 11/05/22 19:17 99 11/05/22 19:17 85 11/05/22 19:15 83 11/05/22 19:15 112/69 11/05/22 19:12 100 11/05/22 19:12 77 11/05/22 19:09 16 11/05/22 19:09 98.2 F 16 11/05/22 19:07 99 11/05/22 19:07 87 11/05/22 19:02 100 11/05/22 19:02 92 H 11/05/22 18:57 100 11/05/22 18:57 84 11/05/22 18:52 100 11/05/22 18:52 86 11/05/22 18:47 98 11/05/22 18:47 91 H 11/05/22 18:44 82 11/05/22 18:44 103/55 L 11/05/22 18:42 99 11/05/22 18:42 86 11/05/22 18:00 16 11/05/22 18:00 16 11/05/22 18:37 100 11/05/22 18:37 82 11/05/22 17:30 18 11/05/22 17:30 18 11/05/22 18:32 100 11/05/22 18:32 80 11/05/22 18:27 100 11/05/22 18:27 81 11/05/22 18:22 100 11/05/22 18:22 78 11/05/22 18:17 98 11/05/22 18:17 96 H 11/05/22 17:21 16 11/05/22 17:21 98.2 F 16 11/05/22 18:12 100 11/05/22 18:12 78 11/05/22 18:07 99 11/05/22 18:07 76 11/05/22 18:02 99 11/05/22 18:02 75 11/05/22 17:57 99 11/05/22 17:57 77 11/05/22 17:56 92 11/05/22 17:56 82 11/05/22 17:52 100 11/05/22 17:52 85 11/05/22 17:47 99 11/05/22 17:47 81 11/05/22 17:46 76 11/05/22 17:46 132/58 L 11/05/22 17:42 100 11/05/22 17:42 93 H 11/05/22 17:37 100 11/05/22 17:37 95 H 11/05/22 17:32 100 11/05/22 17:32 90 11/05/22 17:27 99 11/05/22 17:27 89 11/05/22 17:22 99 11/05/22 17:22 84 11/05/22 17:17 99 11/05/22 17:17 74 11/05/22 16:30 16 11/05/22 16:30 16 11/05/22 17:12 99 11/05/22 17:12 80 11/05/22 17:07 97 11/05/22 17:07 88 11/05/22 17:02 97 11/05/22 17:02 75 11/05/22 16:57 100 11/05/22 16:57 84 11/05/22 16:52 97 11/05/22 16:52 81 11/05/22 16:47 98 11/05/22 16:47 84 11/05/22 16:44 85 11/05/22 16:44 97/53 L 11/05/22 16:42 100 11/05/22 16:42 83 11/05/22 16:37 99 11/05/22 16:37 89 11/05/22 16:32 97 11/05/22 16:32 92 H 11/05/22 16:27 99 11/05/22 16:27 83 Coding Level of Care Code None Diagnoses
[2022-11-06] MEDS ORDERED: CITRIC ACID/SODIUM CITRATE 15 ML UDC ONE (04:55)
[2022-11-06] MEDS ORDERED: ACETAMINOPHEN 1,000 MG/100 ML VIAL IV STA (04:56)
[2022-11-06] MEDS ORDERED: AZITHROMYCIN 500 MG in DEXTROSE 5% 250 ML IV STA (04:58)
[2022-11-06] MEDS ORDERED: LACTATED RINGER'S 1,000 ML IV SCH (05:00)
--- NOTE | 2022-11-06 05:07 | Labor Progress Brief Note ---
Date of Service November 06, 2022 Subjective Patient had more questions about forceps and . A new attempt was made to get an [place] steam press tender and the service had been restored, so a steam press tender was used to answer all their questions. At this time the patient declines operative vaginal attempt and requests to proceed directly to section. Orthopedic Designer used for detailed review of consent form along with review of each listed surgical risk one by one. Patient and FOB ask if she is ever able to have a vaginal delivery, and we discussed that is possible but does carry its own risks. Still febrile and now pitocin is turned off so will give IV tylenol now, have discussed with Dr. Emerson and he has no concerns with use of that drug as we are heading back to OR. I think it likely she absorbed little if any of the prior rectal suppository due to BM occurring during early pushing. Will also give Ancef and Azithro for periop abx, patient has already received 1x dose Unasyn. Dr. Glasgow aware and able to come in and assist with case. FHT currently 190 with moderate variability and accels. Ctx Q2-4 with pit turned off. Fluid remains clear. Assessment & Plan Admission and Anticipated Discharge Date Admission Date: November 05, 2022 Results & Data Vital Signs (Past 12 Hours) Vital Signs Temp Pulse Resp BP Pulse Ox 11/06/22 04:57 104 H 99 11/06/22 04:52 105 H 96 11/06/22 04:47 97 H 98 11/06/22 04:43 102.9 F H 11/06/22 04:42 102 H 97 11/06/22 04:37 108 H 97 11/06/22 04:32 104 H 97 11/06/22 04:27 149 H 90 11/06/22 04:22 116 H 97 11/06/22 04:20 120 H 106/50 L 11/06/22 04:17 105 H 97 11/06/22 04:12 104 H 97 11/06/22 04:11 142 H 93 11/06/22 04:07 150 H 97 11/06/22 04:02 151 H 97 11/06/22 03:57 105 H 97 11/06/22 03:52 106 H 98 11/06/22 03:47 110 H 98 11/06/22 03:48 127 H 87 L 11/06/22 03:42 83 L 11/06/22 03:42 122 H 11/06/22 03:42 126 H 92 11/06/22 03:37 114 H 97 11/06/22 03:36 131 H 89 L 11/06/22 03:32 113 H 98 11/06/22 03:27 108 H 98 11/06/22 03:22 115 H 98 11/06/22 03:20 113 H 88 L 11/06/22 03:19 117 H 118/59 L 11/06/22 03:17 131 H 80 L 11/06/22 03:12 102 H 100 11/06/22 03:13 123 H 91 11/06/22 03:07 98 H 100 11/06/22 03:06 111 H 92 11/06/22 03:02 97 H 98 11/06/22 02:57 103 H 99 11/06/22 02:52 101 H 99 11/06/22 02:47 97 H 99 11/06/22 02:42 93 H 98 11/06/22 02:41 102.2 F H 11/06/22 02:37 93 H 99 11/06/22 02:32 93 H 99 11/06/22 02:27 98 H 100 11/06/22 02:22 90 100 11/06/22 02:19 98 H 116/79 11/06/22 02:17 90 99 11/06/22 02:12 90 99 11/06/22 02:07 98 H 100 11/06/22 02:02 101 H 99 11/06/22 01:57 123 H 98 11/06/22 01:52 106 H 99 11/06/22 01:50 108 H 123/56 L 11/06/22 01:47 106 H 100 11/06/22 01:42 110 H 98 11/06/22 01:37 107 H 99 11/06/22 01:32 108 H 100 11/06/22 01:27 97 H 99 11/06/22 01:22 95 H 99 11/06/22 01:18 111 H 101/58 L 11/06/22 01:17 101 H 100 11/06/22 01:12 100 H 100 11/06/22 01:07 106 H 100 11/06/22 01:02 101 H 100 11/06/22 00:57 106 H 100 11/06/22 00:52 16 11/06/22 00:52 100.0 F H 106 H 16 100 11/06/22 00:50 102 H 114/56 L 11/06/22 00:47 96 H 99 11/06/22 00:42 104 H 100 11/06/22 00:37 103 H 100 11/06/22 00:32 102 H 99 11/06/22 00:29 110 H 90 11/06/22 00:27 103 H 99 11/06/22 00:22 103 H 99 11/06/22 00:19 113 H 121/59 L 11/06/22 00:17 111 H 99 11/06/22 00:12 104 H 99 11/06/22 00:09 102 H 92 11/06/22 00:07 110 H 100 11/06/22 00:02 112 H 100 11/05/22 23:59 91 11/05/22 23:59 110 H 11/05/22 23:57 97 11/05/22 23:57 106 H 11/05/22 23:52 99 11/05/22 23:52 93 H 11/05/22 23:49 90 11/05/22 23:49 101/58 L 11/05/22 23:47 98 11/05/22 23:47 94 H 11/05/22 23:42 98 11/05/22 23:42 92 H 11/05/22 23:37 97 11/05/22 23:37 79 11/05/22 23:32 97 11/05/22 23:32 86 11/05/22 23:27 98 11/05/22 23:27 90 11/05/22 23:22 98 11/05/22 23:22 84 11/05/22 23:00 16 11/05/22 23:00 99.1 F 16 11/05/22 23:19 84 11/05/22 23:19 100/54 L 11/05/22 23:17 99 11/05/22 23:17 87 11/05/22 23:12 98 11/05/22 23:12 84 11/05/22 23:07 99 11/05/22 23:07 87 11/05/22 23:02 99 11/05/22 23:02 101 H 11/05/22 22:57 98 11/05/22 22:57 86 11/05/22 22:52 98 11/05/22 22:52 86 11/05/22 22:47 98 11/05/22 22:47 81 11/05/22 22:47 130/63 11/05/22 22:46 90 11/05/22 22:46 129/66 11/05/22 22:43 84 11/05/22 22:43 134/71 11/05/22 22:42 98 11/05/22 22:42 84 11/05/22 22:41 86 11/05/22 22:41 133/70 11/05/22 22:40 82 11/05/22 22:40 128/70 11/05/22 22:37 100 11/05/22 22:37 87 11/05/22 22:35 80 11/05/22 22:35 129/66 11/05/22 22:33 76 11/05/22 22:33 132/63 11/05/22 22:32 98 11/05/22 22:32 79 11/05/22 22:32 77 11/05/22 22:32 127/61 11/05/22 22:30 83 11/05/22 22:30 123/60 11/05/22 22:27 99 11/05/22 22:27 75 11/05/22 22:27 127/75 11/05/22 22:26 93 11/05/22 22:25 82 11/05/22 22:26 79 11/05/22 22:25 125/77 11/05/22 22:24 77 11/05/22 22:24 125/73 11/05/22 22:22 100 11/05/22 22:22 77 11/05/22 22:19 74 11/05/22 22:19 129/69 11/05/22 22:17 98 11/05/22 22:17 78 11/05/22 22:17 128/68 11/05/22 22:15 77 11/05/22 22:15 130/69 11/05/22 22:14 92 11/05/22 22:14 79 11/05/22 22:13 77 11/05/22 22:13 133/71 11/05/22 22:12 100 11/05/22 22:12 80 11/05/22 22:11 75 11/05/22 22:11 128/68 11/05/22 22:09 73 11/05/22 22:09 124/67 11/05/22 22:07 99 11/05/22 22:07 76 11/05/22 22:07 125/67 11/05/22 22:06 91 11/05/22 22:05 76 11/05/22 22:06 75 11/05/22 22:05 122/64 11/05/22 22:03 77 11/05/22 22:03 119/61 11/05/22 22:02 99 11/05/22 22:02 75 11/05/22 22:01 77 11/05/22 22:01 119/62 11/05/22 22:00 74 11/05/22 22:00 114/60 11/05/22 21:57 100 11/05/22 21:57 74 11/05/22 21:58 73 11/05/22 21:58 117/67 11/05/22 21:55 80 11/05/22 21:55 121/71 11/05/22 21:53 75 11/05/22 21:53 116/62 11/05/22 21:52 97 11/05/22 21:52 76 11/05/22 21:51 80 11/05/22 21:51 123/66 11/05/22 21:50 80 11/05/22 21:50 114/57 L 11/05/22 21:47 98 11/05/22 21:47 79 11/05/22 21:47 116/68 11/05/22 21:45 81 11/05/22 21:45 112/67 11/05/22 21:44 80 11/05/22 21:44 107/60 11/05/22 21:42 97 11/05/22 21:42 80 11/05/22 21:42 111/59 L 11/05/22 21:40 74 11/05/22 21:40 108/63 11/05/22 21:37 97 11/05/22 21:37 86 11/05/22 21:38 83 11/05/22 21:38 115/83 11/05/22 21:36 94 H 11/05/22 21:36 112/53 L 11/05/22 21:32 99 11/05/22 21:32 95 H 11/05/22 21:32 92 H 11/05/22 21:32 100/50 L 11/05/22 21:29 90 11/05/22 21:29 109/57 L 11/05/22 21:27 99 11/05/22 21:27 88 11/05/22 21:28 90 11/05/22 21:28 104/55 L 11/05/22 21:25 98 H 11/05/22 21:25 115/62 11/05/22 21:22 98 11/05/22 21:22 81 11/05/22 21:17 98 11/05/22 21:17 92 H 11/05/22 21:12 99 11/05/22 21:12 89 11/05/22 21:08 93 11/05/22 21:08 90 11/05/22 21:07 99 11/05/22 21:07 89 11/05/22 21:02 100 11/05/22 21:02 90 11/05/22 21:00 91 11/05/22 21:00 90 11/05/22 20:58 16 11/05/22 20:58 98.8 F 16 11/05/22 20:57 99 11/05/22 20:57 93 H 11/05/22 20:52 99 11/05/22 20:52 93 H 11/05/22 20:47 100 11/05/22 20:47 88 11/05/22 20:44 93 H 11/05/22 20:44 98/53 L 11/05/22 20:42 99 11/05/22 20:42 91 H 11/05/22 20:37 98 11/05/22 20:37 90 11/05/22 20:32 99 11/05/22 20:32 98 H 11/05/22 20:27 100 11/05/22 20:27 93 H 11/05/22 20:22 100 11/05/22 20:22 100 H 11/05/22 20:17 99 11/05/22 20:17 96 H 11/05/22 20:17 94 11/05/22 20:17 97 H 11/05/22 20:12 99 11/05/22 20:12 92 H 11/05/22 20:07 100 11/05/22 20:07 109 H 11/05/22 20:02 100 11/05/22 20:02 95 H 11/05/22 19:57 100 11/05/22 19:57 90 11/05/22 19:52 99 11/05/22 19:52 88 11/05/22 19:47 98 11/05/22 19:47 88 11/05/22 19:44 90 11/05/22 19:44 115/70 11/05/22 19:42 97 11/05/22 19:42 89 11/05/22 19:37 98 11/05/22 19:37 88 11/05/22 19:32 97 11/05/22 19:32 81 11/05/22 19:27 97 11/05/22 19:27 84 11/05/22 19:22 98 11/05/22 19:22 86 11/05/22 19:17 99 11/05/22 19:17 85 11/05/22 19:15 83 11/05/22 19:15 112/69 11/05/22 19:12 100 11/05/22 19:12 77 11/05/22 19:09 16 11/05/22 19:09 98.2 F 16 11/05/22 19:07 99 11/05/22 19:07 87 11/05/22 19:02 100 11/05/22 19:02 92 H 11/05/22 18:57 100 11/05/22 18:57 84 11/05/22 18:52 100 11/05/22 18:52 86 11/05/22 18:47 98 11/05/22 18:47 91 H 11/05/22 18:44 82 11/05/22 18:44 103/55 L 11/05/22 18:42 99 11/05/22 18:42 86 11/05/22 18:00 16 11/05/22 18:00 16 11/05/22 18:37 100 11/05/22 18:37 82 11/05/22 17:30 18 11/05/22 17:30 18 11/05/22 18:32 100 11/05/22 18:32 80 11/05/22 18:27 100 11/05/22 18:27 81 03/30/23 18:22 100 11/05/22 18:22 78 11/05/22 18:17 98 11/05/22 18:17 96 H 11/05/22 17:21 16 11/05/22 17:21 98.2 F 16 11/05/22 18:12 100 11/05/22 18:12 78 11/05/22 18:07 99 11/05/22 18:07 76 11/05/22 18:02 99 11/05/22 18:02 75 11/05/22 17:57 99 11/05/22 17:57 77 11/05/22 17:56 92 11/05/22 17:56 82 11/05/22 17:52 100 11/05/22 17:52 85 11/05/22 17:47 99 11/05/22 17:47 81 11/05/22 17:46 76 11/05/22 17:46 132/58 L 11/05/22 17:42 100 11/05/22 17:42 93 H 11/05/22 17:37 100 11/05/22 17:37 95 H 11/05/22 17:32 100 11/05/22 17:32 90 11/05/22 17:27 99 11/05/22 17:27 89 11/05/22 17:22 99 11/05/22 17:22 84 11/05/22 17:17 99 11/05/22 17:17 74 11/05/22 17:12 99 11/05/22 17:12 80 11/05/22 17:07 97 11/05/22 17:07 88 11/05/22 17:02 97 11/05/22 17:02 75 Coding Level of Care Code None Diagnoses
[2022-11-06] MEDS ORDERED: LIDOCAINE 2%/EPINEPHRINE 1:200,000 20 ML PF ONE (05:32)
[2022-11-06] MEDS ORDERED: NALOXONE HCL 0.4 MG/1 ML VIAL/CARP IV PRN (05:49)
[2022-11-06] MEDS ORDERED: PROMETHAZINE HCL 25 MG in SODIUM CHLORIDE 0.9% 50 ML IV PRN ×2 (05:49→06:26)
[2022-11-06] MEDS ORDERED: diphenhydrAMINE 50 MG/ML VIAL IV PRN ×2 (05:49→06:26)
[2022-11-06] MEDS ORDERED: LACTATED RINGER'S 500 ML IV PRN (05:49)
[2022-11-06] MEDS ORDERED: ePHEDrine sulfate 50 MG/ML AMP IV PRN (05:49)
[2022-11-06] MEDS ORDERED: KETOROLAC 30 MG/ML VIAL IV PRN (05:49)
[2022-11-06] MEDS ORDERED: MoRPHine SULFATE PF 1 MG/ML 10 ML AMP/VIAL INT SPINAL ONE (05:49)
[2022-11-06] MEDS ORDERED: NALOXONE HCL 0.08 MG in SYRINGE 1.8 ML IV PRN (05:49)
[2022-11-06] MEDS ORDERED: NALBUPHINE HCL INJ 10 MG/ML AMP IV PRN (05:49)
[2022-11-06] MEDS ORDERED: HYDROmorphone INJ 0.5 MG/0.5 ML SYR IV PRN (05:49)
[2022-11-06] MEDS ORDERED: METOCLOPRAMIDE HCL 20 MG in SODIUM CHLORIDE 0.9% 50 ML IV PRN (05:49)
[2022-11-06] MEDS ORDERED: MoRPHine SULFATE 2 MG/ML CARP IV PRN (05:49)
[2022-11-06] MEDS ORDERED: NALOXONE HCL 1 MG in SODIUM CHLORIDE 0.9% 1000ML 1,000 ML IV PRN (05:49)
[2022-11-06] MEDS ORDERED: ONDANSETRON INJ 2 MG/ML 2 ML VIAL IV PRN ×2 (05:49→06:26)
[2022-11-06] MEDS ORDERED: MEPERIDINE HCL 25 MG/ML CARP/VIAL IV PRN (05:49)
[2022-11-06] MEDS ORDERED: OXYTOCIN 10 UNITS/ML 10ML VIAL ONE (05:51)
[2022-11-06] MEDS ORDERED: MoRPHine SULFATE PF 1 MG/ML 10 ML AMP/VIAL ONE (05:51)
[2022-11-06] MEDS ORDERED: NO NARCOTICS OR SEDATIVES SCH (06:00)
[2022-11-06] MEDS ORDERED: SODIUM CHLORIDE 0.9% 1000ML 1,000 ML IV SCH (06:00)
[2022-11-06] MEDS ORDERED: DC INTRASPINAL MORPHINE SCH (06:00)
[2022-11-06] MEDS ORDERED: CITRIC ACID/SODIUM CITRATE 15 ML UDC PO SCH (06:00)
[2022-11-06] MEDS ORDERED: METHYLERGONOVINE MALEATE 0.2 MG/ML AMP ONE (06:02)
--- NOTE | 2022-11-06 06:14 | Operative Report ---
PG Post Operative Report Pre & Post Diagnosis Operation Date: 11/06/22 05:00 Pre-Op Diagnosis: SIUP @ 39w6d, PROM/IOL, Failure to descend, NRFHT, Chorioamnionitis Post-Op Diagnosis: same as preop I identified the patient and participated in the time-out.: Yes Procedure Operation Date: 11/06/22 05:00 Actual Procedures 1' Low Transverse Section with Left Cervical Extension Surgeon Apoorva Gallardo MD Bead Flipper Pee Estimated Blood Loss 600 Findings Consistent with Post-Op Diagnosis Specimens Placenta, cord blood Anesthesia Type L&D Only Epidural Exists Complications none Disposition Accompanied Patient To Recovery: Yes Disposition: L&D Description of Procedure The patient was placed operating table in the supine position with a leftward tilt. She was prepped and draped in standard sterile fashion. The anesthetic was tested and found to be adequate. A time-out was held, identifying correct patient, procedure, positioning and preoperative antibiotics. There were no concerns. A Pfannenstiel skin incision was made with a knife and taken down to the underlying layer of fascia. The fascia was incised in the midline with the knife and taken out laterally with scissors. The superior edge of the fascial incision was grasped, elevated and dissected off the underlying rectus both superiorly and inferiorly. The muscles were bluntly in the midline. The peritoneum was entered bluntly. The incision was then stretched. The bladder retractor was placed. The vesicouterine peritoneum was identified, entered with scissors and taken out laterally with scissors. The bladder flap was created digitally. A hysterotomy incision was created transversely in the lower uterine segment, final entry being accomplished in a blunt manner with the high lift mule operator's fingers. Clear amniotic fluid was encountered. The high lift mule operator's hand was used to elevate the head to the hysterotomy. The head was delivered using mild fundal pressure, and the shoulders and body followed without difficulty. The cord was clamped and cut and the was then handed off to the awaiting net sql developer. Cord blood was obtained. The placenta was Manually extracted. The uterus was exteriorized and cleared of all clot and debris with moistened laparotomy sponges. The hysterotomy incision with a left cervical extension was repaired in two layers, the first in a running locked layer, the second in an imbricating layer, incorporating the extension with the hysterotomy into one linear repair. The ovaries and tubes were seen to be normal bilaterally. The uterus was gently replaced in the a bdomen, and the gutters were cleared of clot and debris. A final inspection of the hysterotomy revealed good hemostasis. The rectus muscles were allowed to reapproximate naturally. The fascia was then reapproximated with 1 Vicryl in a running nonlocked manner. The fascia was examined and found to be free of defect following closure. The subcutaneous tissue was copiously irrigated and reapproximated with 0-chromic, then the skin edges were closed with 4-0 monocryl in a subcuticular fashion. A dermabond dressing was applied. The valdez was found to be draining clear yellow urine at completion of the procedure. I attest to the content of the Intraoperative Record and any orders documented therein. Any exceptions are noted below. I attest to the content of the Intraoperative Record and any orders documented therein. Any exceptions are noted below. OB Procedure Charges 60008
[2022-11-06] MEDS ORDERED: DIPHTHERIA/TETANUS/PERTUSSIS 0.5mL SYR/VIAL (Age 7+yrs) IM ONE (06:26)
[2022-11-06] MEDS ORDERED: MAGNESIUM HYDROXIDE SUSP 30 ML UDC PO PRN (06:26)
[2022-11-06] MEDS ORDERED: SENNA 8.6 MG TAB PO PRN (06:26)
[2022-11-06] MEDS ORDERED: HYDROCORTISONE ACETATE 25 MG SUPP PR PRN (06:26)
[2022-11-06] MEDS ORDERED: diphenhydrAMINE Capsule 25 MG CAP PO PRN (06:26)
[2022-11-06] MEDS ORDERED: BENZOCAINE 20% AER SPR 82.5 GM CAN EXT PRN (06:26)
[2022-11-06] MEDS ORDERED: SODIUM CHLORIDE 0.9% 250 ML IV PRN (06:28)
--- NOTE | 2022-11-06 07:13 | Anesthesia Procedure Note ---
Date of Service November 06, 2022 Anesthesia Post Epidural Note Vital Signs Vital Signs: Temp Pulse Resp BP Pulse Ox O2 Del Method 37.4 C 74 16 111/67 96 Room Air 11/06/22 06:20 11/06/22 07:10 11/06/22 06:50 11/06/22 06:10 11/06/22 07:10 11/05/22 07:10 Pain Intensity Abdomen: Pain Intensity: 8 Notes Mental Status: alert / awake / arousable and participated in evaluation Patient Amnestic to Procedure: No Nausea / Vomiting: adequately controlled Pain: adequately controlled Airway Patency, RR, SpO2: stable & adequate BP & HR: stable & adequate Hydration State: stable & adequate Neuraxial Anesthesia: was administered and sensory block is resolving Anesthetic Complications: no major complications apparent and Pt Satisfied with anesthetic care Epidural: Removed without complications and With tip intact
[2022-11-06] MEDS: OXYTOCIN 20 UNITS in LACTATED RINGER'S 1,000 ML IV SCH ×2 (08:24→17:13)
[2022-11-06] MEDS: SIMETHICONE 80 MG CHEW PO SCH ×4 (08:45→20:54)
[2022-11-06] MEDS: FERROUS SULFATE 325 MG TAB PO SCH (08:46)
[2022-11-06] MEDS: DOCUSATE SODIUM 100 MG CAP PO SCH ×2 (08:46→20:54)
[2022-11-06] MEDS: PRENATAL VITAMIN 1 TAB PO SCH (08:46)
[2022-11-06] MEDS: LACTATED RINGER'S 1,000 ML IV SCH ×2 (08:46→17:20)
--- NOTE | 2022-11-06 16:26 | Anesthesiology Progress Note ---
Date of Service November 06, 2022 Anesthesia Post Procedure Vital Signs Vital Signs: Temp Pulse Pulse Resp BP BP Pulse Ox 11/06/22 14:15 16 96 11/06/22 13:25 18 96 11/06/22 12:35 18 11/06/22 12:30 18 96 11/06/22 12:10 36.5 C 66 16 117/79 96 11/06/22 11:30 16 98 11/06/22 09:45 18 98 11/06/22 10:45 16 93 11/06/22 08:45 16 96 11/06/22 09:00 16 96 11/06/22 09:00 36.7 C 73 16 119/75 96 11/06/22 08:35 36.8 C 16 11/06/22 08:05 36.8 C 16 11/06/22 07:25 36.8 C 16 11/06/22 07:25 37.2 C 16 11/06/22 07:20 18 11/06/22 07:10 16 11/06/22 07:00 37.2 C 16 11/06/22 06:50 16 11/06/22 06:40 16 11/06/22 06:30 16 11/06/22 06:20 37.4 C 16 11/06/22 08:20 72 121/58 L 96 11/06/22 08:15 74 96 11/06/22 08:10 95 11/06/22 08:10 75 11/06/22 08:10 72 116/56 L 11/06/22 08:05 68 96 11/06/22 08:00 96 11/06/22 08:00 71 11/06/22 08:00 71 125/70 11/06/22 07:55 70 97 11/06/22 07:50 73 135/76 96 11/06/22 07:45 74 97 11/06/22 07:40 74 111/65 97 11/06/22 07:35 75 96 11/06/22 07:30 96 11/06/22 07:30 75 11/06/22 07:30 74 118/68 11/06/22 07:25 73 96 11/06/22 07:20 75 121/67 94 11/06/22 07:19 75 89 L 11/06/22 07:15 73 95 11/06/22 07:10 74 96 11/06/22 07:05 81 95 11/06/22 07:00 83 96 11/06/22 06:55 81 94 11/06/22 06:50 84 93 11/06/22 06:45 82 93 11/06/22 06:40 84 94 11/06/22 06:35 87 94 11/06/22 06:30 93 H 95 11/06/22 06:27 91 H 94 11/06/22 06:25 93 H 94 11/06/22 06:21 101 H 94 11/06/22 06:20 102 H 95 11/06/22 06:15 106 H 97 11/06/22 06:10 106 H 111/67 96 11/06/22 05:12 106 H 98 11/06/22 05:11 114 H 114/56 L 11/06/22 05:07 114 H 128/64 99 11/06/22 05:02 115 H 97 11/06/22 04:57 104 H 99 11/06/22 04:52 105 H 96 11/06/22 04:47 97 H 98 11/06/22 04:43 39.4 C H 11/06/22 04:42 102 H 97 11/06/22 04:37 108 H 97 11/06/22 04:32 104 H 97 11/06/22 04:27 149 H 90 11/06/22 04:22 116 H 97 11/06/22 04:20 120 H 106/50 L 11/06/22 04:17 105 H 97 11/06/22 04:12 104 H 97 11/06/22 04:11 142 H 93 11/06/22 04:07 150 H 97 11/06/22 04:02 151 H 97 11/06/22 03:57 105 H 97 11/06/22 03:52 106 H 98 11/06/22 03:47 110 H 98 11/06/22 03:48 127 H 87 L 11/06/22 03:42 83 L 11/06/22 03:42 122 H 11/06/22 03:42 126 H 92 11/06/22 03:37 114 H 97 11/06/22 03:36 131 H 89 L 11/06/22 03:32 113 H 98 11/06/22 03:27 108 H 98 11/06/22 03:22 115 H 98 11/06/22 03:20 113 H 88 L 11/06/22 03:19 117 H 118/59 L 11/06/22 03:17 131 H 80 L 11/06/22 03:12 102 H 100 11/06/22 03:13 123 H 91 11/06/22 03:07 98 H 100 11/06/22 03:06 111 H 92 11/06/22 03:02 97 H 98 11/06/22 02:57 103 H 99 11/06/22 02:52 101 H 99 11/06/22 02:47 97 H 99 11/06/22 02:42 93 H 98 11/06/22 02:41 39.0 C H 11/06/22 02:37 93 H 99 11/06/22 02:32 93 H 99 11/06/22 02:27 98 H 100 11/06/22 02:22 90 100 11/06/22 02:19 98 H 116/79 11/06/22 02:17 90 99 11/06/22 02:12 90 99 11/06/22 02:07 98 H 100 11/06/22 02:02 101 H 99 11/06/22 01:57 123 H 98 11/06/22 01:52 106 H 99 11/06/22 01:50 108 H 123/56 L 11/06/22 01:47 106 H 100 11/06/22 01:42 110 H 98 11/06/22 01:37 107 H 99 11/06/22 01:32 108 H 100 11/06/22 01:27 97 H 99 11/06/22 01:22 95 H 99 11/06/22 01:18 111 H 101/58 L 11/06/22 01:17 101 H 100 11/06/22 01:12 100 H 100 11/06/22 01:07 106 H 100 11/06/22 01:02 101 H 100 11/06/22 00:57 106 H 100 11/06/22 00:52 16 11/06/22 00:52 37.8 C H 106 H 16 100 11/06/22 00:50 102 H 114/56 L 11/06/22 00:47 96 H 99 11/06/22 00:42 104 H 100 11/06/22 00:37 103 H 100 11/06/22 00:32 102 H 99 11/06/22 00:29 110 H 90 11/06/22 00:27 103 H 99 11/06/22 00:22 103 H 99 11/06/22 00:19 113 H 121/59 L 11/06/22 00:17 111 H 99 11/06/22 00:12 104 H 99 11/06/22 00:09 102 H 92 11/06/22 00:07 110 H 100 11/06/22 00:02 112 H 100 11/05/22 23:59 91 11/05/22 23:59 110 H 11/05/22 23:57 97 11/05/22 23:57 106 H 11/05/22 23:52 99 11/05/22 23:52 93 H 11/05/22 23:49 90 11/05/22 23:49 101/58 L 11/05/22 23:47 98 11/05/22 23:47 94 H 11/05/22 23:42 98 11/05/22 23:42 92 H 11/05/22 23:37 97 11/05/22 23:37 79 11/05/22 23:32 97 11/05/22 23:32 86 11/05/22 23:27 98 11/05/22 23:27 90 11/05/22 23:22 98 11/05/22 23:22 84 11/05/22 23:00 16 11/05/22 23:00 37.3 C 16 11/05/22 23:19 84 11/05/22 23:19 100/54 L 11/05/22 23:17 99 11/05/22 23:17 87 11/05/22 23:12 98 11/05/22 23:12 84 11/05/22 23:07 99 11/05/22 23:07 87 11/05/22 23:02 99 11/05/22 23:02 101 H 11/05/22 22:57 98 11/05/22 22:57 86 11/05/22 22:52 98 11/05/22 22:52 86 11/05/22 22:47 98 11/05/22 22:47 81 11/05/22 22:47 130/63 11/05/22 22:46 90 11/05/22 22:46 129/66 11/05/22 22:43 84 11/05/22 22:43 134/71 11/05/22 22:42 98 11/05/22 22:42 84 11/05/22 22:41 86 11/05/22 22:41 133/70 11/05/22 22:40 82 11/05/22 22:40 128/70 11/05/22 22:37 100 11/05/22 22:37 87 11/05/22 22:35 80 11/05/22 22:35 129/66 11/05/22 22:33 76 11/05/22 22:33 132/63 11/05/22 22:32 98 11/05/22 22:32 79 11/05/22 22:32 77 11/05/22 22:32 127/61 11/05/22 22:30 83 11/05/22 22:30 123/60 11/05/22 22:27 99 11/05/22 22:27 75 11/05/22 22:27 127/75 11/05/22 22:26 93 11/05/22 22:25 82 11/05/22 22:26 79 11/05/22 22:25 125/77 11/05/22 22:24 77 11/05/22 22:24 125/73 11/05/22 22:22 100 11/05/22 22:22 77 11/05/22 22:19 74 11/05/22 22:19 129/69 11/05/22 22:17 98 11/05/22 22:17 78 11/05/22 22:17 128/68 11/05/22 22:15 77 11/05/22 22:15 130/69 11/05/22 22:14 92 11/05/22 22:14 79 11/05/22 22:13 77 11/05/22 22:13 133/71 11/05/22 22:12 100 11/05/22 22:12 80 11/05/22 22:11 75 11/05/22 22:11 128/68 11/05/22 22:09 73 11/05/22 22:09 124/67 11/05/22 22:07 99 11/05/22 22:07 76 11/05/22 22:07 125/67 11/05/22 22:06 91 11/05/22 22:05 76 11/05/22 22:06 75 11/05/22 22:05 122/64 11/05/22 22:03 77 11/05/22 22:03 119/61 11/05/22 22:02 99 11/05/22 22:02 75 11/05/22 22:01 77 11/05/22 22:01 119/62 11/05/22 22:00 74 11/05/22 22:00 114/60 11/05/22 21:57 100 11/05/22 21:57 74 11/05/22 21:58 73 11/05/22 21:58 117/67 11/05/22 21:55 80 11/05/22 21:55 121/71 11/05/22 21:53 75 11/05/22 21:53 116/62 11/05/22 21:52 97 11/05/22 21:52 76 11/05/22 21:51 80 11/05/22 21:51 123/66 11/05/22 21:50 80 11/05/22 21:50 114/57 L 11/05/22 21:47 98 11/05/22 21:47 79 11/05/22 21:47 116/68 11/05/22 21:45 81 11/05/22 21:45 112/67 11/05/22 21:44 80 11/05/22 21:44 107/60 11/05/22 21:42 97 11/05/22 21:42 80 11/05/22 21:42 111/59 L 11/05/22 21:40 74 11/05/22 21:40 108/63 11/05/22 21:37 97 11/05/22 21:37 86 11/05/22 21:38 83 11/05/22 21:38 115/83 11/05/22 21:36 94 H 11/05/22 21:36 112/53 L 11/05/22 21:32 99 11/05/22 21:32 95 H 11/05/22 21:32 92 H 11/05/22 21:32 100/50 L 11/05/22 21:29 90 11/05/22 21:29 109/57 L 11/05/22 21:27 99 11/05/22 21:27 88 03/30/23 21:28 90 11/05/22 21:28 104/55 L 11/05/22 21:25 98 H 11/05/22 21:25 115/62 11/05/22 21:22 98 11/05/22 21:22 81 11/05/22 21:17 98 11/05/22 21:17 92 H 11/05/22 21:12 99 11/05/22 21:12 89 11/05/22 21:08 93 11/05/22 21:08 90 11/05/22 21:07 99 11/05/22 21:07 89 11/05/22 21:02 100 11/05/22 21:02 90 11/05/22 21:00 91 11/05/22 21:00 90 11/05/22 20:58 16 11/05/22 20:58 37.1 C 16 11/05/22 20:57 99 11/05/22 20:57 93 H 11/05/22 20:52 99 11/05/22 20:52 93 H 11/05/22 20:47 100 11/05/22 20:47 88 11/05/22 20:44 93 H 11/05/22 20:44 98/53 L 11/05/22 20:42 99 11/05/22 20:42 91 H 11/05/22 20:37 98 11/05/22 20:37 90 11/05/22 20:32 99 11/05/22 20:32 98 H 11/05/22 20:27 100 11/05/22 20:27 93 H 11/05/22 20:22 100 11/05/22 20:22 100 H 11/05/22 20:17 99 11/05/22 20:17 96 H 11/05/22 20:17 94 11/05/22 20:17 97 H 11/05/22 20:12 99 11/05/22 20:12 92 H 11/05/22 20:07 100 11/05/22 20:07 109 H 11/05/22 20:02 100 11/05/22 20:02 95 H 11/05/22 19:57 100 11/05/22 19:57 90 11/05/22 19:52 99 11/05/22 19:52 88 11/05/22 19:47 98 11/05/22 19:47 88 11/05/22 19:44 90 11/05/22 19:44 115/70 11/05/22 19:42 97 11/05/22 19:42 89 11/05/22 19:37 98 11/05/22 19:37 88 11/05/22 19:32 97 11/05/22 19:32 81 11/05/22 19:27 97 11/05/22 19:27 84 11/05/22 19:22 98 11/05/22 19:22 86 11/05/22 19:17 99 11/05/22 19:17 85 11/05/22 19:15 83 11/05/22 19:15 112/69 11/05/22 19:12 100 11/05/22 19:12 77 11/05/22 19:09 16 11/05/22 19:09 36.8 C 16 11/05/22 19:07 99 11/05/22 19:07 87 11/05/22 19:02 100 11/05/22 19:02 92 H 11/05/22 18:57 100 11/05/22 18:57 84 11/05/22 18:52 100 11/05/22 18:52 86 11/05/22 18:47 98 11/05/22 18:47 91 H 11/05/22 18:44 82 11/05/22 18:44 103/55 L 11/05/22 18:42 99 11/05/22 18:42 86 11/05/22 18:00 16 11/05/22 18:00 16 11/05/22 18:37 100 11/05/22 18:37 82 11/05/22 17:30 18 11/05/22 17:30 18 11/05/22 18:32 100 11/05/22 18:32 80 11/05/22 18:27 100 11/05/22 18:27 81 11/05/22 18:22 100 11/05/22 18:22 78 11/05/22 18:17 98 11/05/22 18:17 96 H 11/05/22 17:21 16 11/05/22 17:21 36.8 C 16 11/05/22 18:12 100 11/05/22 18:12 78 11/05/22 18:07 99 11/05/22 18:07 76 11/05/22 18:02 99 11/05/22 18:02 75 11/05/22 17:57 99 11/05/22 17:57 77 11/05/22 17:56 92 11/05/22 17:56 82 11/05/22 17:52 100 11/05/22 17:52 85 11/05/22 17:47 99 11/05/22 17:47 81 11/05/22 17:46 76 11/05/22 17:46 132/58 L 11/05/22 17:42 100 11/05/22 17:42 93 H 11/05/22 17:37 100 11/05/22 17:37 95 H 11/05/22 17:32 100 11/05/22 17:32 90 11/05/22 17:27 99 11/05/22 17:27 89 11/05/22 17:22 99 11/05/22 17:22 84 11/05/22 17:17 99 11/05/22 17:17 74 11/05/22 16:30 16 11/05/22 16:30 16 11/05/22 17:12 99 11/05/22 17:12 80 11/05/22 17:07 97 11/05/22 17:07 88 11/05/22 17:02 97 11/05/22 17:02 75 11/05/22 16:57 100 11/05/22 16:57 84 11/05/22 16:52 97 11/05/22 16:52 81 11/05/22 16:47 98 11/05/22 16:47 84 11/05/22 16:44 85 11/05/22 16:44 97/53 L 11/05/22 16:42 100 11/05/22 16:42 83 11/05/22 16:37 99 11/05/22 16:37 89 11/05/22 16:32 97 11/05/22 16:32 92 H 11/05/22 16:27 99 11/05/22 16:27 83 O2 Del Method 11/06/22 14:15 11/06/22 13:25 11/06/22 12:35 11/06/22 12:30 11/06/22 12:10 Room Air 11/06/22 11:30 11/06/22 09:45 11/06/22 10:45 11/06/22 08:45 11/06/22 09:00 11/06/22 09:00 Room Air 11/06/22 08:35 11/06/22 08:05 Room Air 11/06/22 07:25 Room Air 11/06/22 07:25 11/06/22 07:20 11/06/22 07:10 11/06/22 07:00 11/06/22 06:50 11/06/22 06:40 11/06/22 06:30 11/06/22 06:20 11/06/22 08:20 11/06/22 08:15 11/06/22 08:10 11/06/22 08:10 11/06/22 08:10 11/06/22 08:05 11/06/22 08:00 11/06/22 08:00 11/06/22 08:00 11/06/22 07:55 11/06/22 07:50 11/06/22 07:45 11/06/22 07:40 11/06/22 07:35 11/06/22 07:30 11/06/22 07:30 11/06/22 07:30 11/06/22 07:25 11/06/22 07:20 11/06/22 07:19 11/06/22 07:15 11/06/22 07:10 11/06/22 07:05 11/06/22 07:00 11/06/22 06:55 11/06/22 06:50 11/06/22 06:45 11/06/22 06:40 11/06/22 06:35 11/06/22 06:30 11/06/22 06:27 11/06/22 06:25 11/06/22 06:21 11/06/22 06:20 11/06/22 06:15 11/06/22 06:10 11/06/22 05:12 11/06/22 05:11 11/06/22 05:07 11/06/22 05:02 11/06/22 04:57 11/06/22 04:52 11/06/22 04:47 11/06/22 04:43 11/06/22 04:42 11/06/22 04:37 11/06/22 04:32 11/06/22 04:27 11/06/22 04:22 11/06/22 04:20 11/06/22 04:17 11/06/22 04:12 11/06/22 04:11 11/06/22 04:07 11/06/22 04:02 11/06/22 03:57 11/06/22 03:52 11/06/22 03:47 11/06/22 03:48 11/06/22 03:42 11/06/22 03:42 11/06/22 03:42 11/06/22 03:37 11/06/22 03:36 11/06/22 03:32 11/06/22 03:27 11/06/22 03:22 11/06/22 03:20 11/06/22 03:19 11/06/22 03:17 11/06/22 03:12 11/06/22 03:13 11/06/22 03:07 11/06/22 03:06 11/06/22 03:02 11/06/22 02:57 11/06/22 02:52 11/06/22 02:47 11/06/22 02:42 11/06/22 02:41 11/06/22 02:37 11/06/22 02:32 11/06/22 02:27 11/06/22 02:22 11/06/22 02:19 11/06/22 02:17 11/06/22 02:12 11/06/22 02:07 11/06/22 02:02 11/06/22 01:57 11/06/22 01:52 11/06/22 01:50 11/06/22 01:47 11/06/22 01:42 11/06/22 01:37 11/06/22 01:32 11/06/22 01:27 11/06/22 01:22 11/06/22 01:18 11/06/22 01:17 11/06/22 01:12 11/06/22 01:07 11/06/22 01:02 11/06/22 00:57 11/06/22 00:52 11/06/22 00:52 11/06/22 00:50 11/06/22 00:47 11/06/22 00:42 11/06/22 00:37 11/06/22 00:32 11/06/22 00:29 11/06/22 00:27 11/06/22 00:22 11/06/22 00:19 11/06/22 00:17 11/06/22 00:12 11/06/22 00:09 11/06/22 00:07 11/06/22 00:02 11/05/22 23:59 11/05/22 23:59 11/05/22 23:57 11/05/22 23:57 11/05/22 23:52 11/05/22 23:52 11/05/22 23:49 11/05/22 23:49 11/05/22 23:47 11/05/22 23:47 11/05/22 23:42 11/05/22 23:42 11/05/22 23:37 11/05/22 23:37 11/05/22 23:32 11/05/22 23:32 11/05/22 23:27 11/05/22 23:27 11/05/22 23:22 11/05/22 23:22 11/05/22 23:00 11/05/22 23:00 11/05/22 23:19 11/05/22 23:19 11/05/22 23:17 11/05/22 23:17 11/05/22 23:12 11/05/22 23:12 11/05/22 23:07 11/05/22 23:07 11/05/22 23:02 11/05/22 23:02 11/05/22 22:57 11/05/22 22:57 11/05/22 22:52 11/05/22 22:52 11/05/22 22:47 11/05/22 22:47 11/05/22 22:47 11/05/22 22:46 11/05/22 22:46 11/05/22 22:43 11/05/22 22:43 11/05/22 22:42 11/05/22 22:42 11/05/22 22:41 11/05/22 22:41 11/05/22 22:40 11/05/22 22:40 11/05/22 22:37 11/05/22 22:37 11/05/22 22:35 11/05/22 22:35 11/05/22 22:33 11/05/22 22:33 11/05/22 22:32 11/05/22 22:32 11/05/22 22:32 11/05/22 22:32 11/05/22 22:30 11/05/22 22:30 11/05/22 22:27 11/05/22 22:27 11/05/22 22:27 11/05/22 22:26 11/05/22 22:25 11/05/22 22:26 11/05/22 22:25 11/05/22 22:24 11/05/22 22:24 11/05/22 22:22 11/05/22 22:22 11/05/22 22:19 11/05/22 22:19 11/05/22 22:17 11/05/22 22:17 11/05/22 22:17 11/05/22 22:15 11/05/22 22:15 11/05/22 22:14 11/05/22 22:14 11/05/22 22:13 11/05/22 22:13 11/05/22 22:12 11/05/22 22:12 11/05/22 22:11 11/05/22 22:11 11/05/22 22:09 11/05/22 22:09 11/05/22 22:07 11/05/22 22:07 11/05/22 22:07 11/05/22 22:06 11/05/22 22:05 11/05/22 22:06 11/05/22 22:05 11/05/22 22:03 11/05/22 22:03 11/05/22 22:02 11/05/22 22:02 11/05/22 22:01 11/05/22 22:01 11/05/22 22:00 11/05/22 22:00 11/05/22 21:57 11/05/22 21:57 11/05/22 21:58 11/05/22 21:58 11/05/22 21:55 11/05/22 21:55 11/05/22 21:53 11/05/22 21:53 11/05/22 21:52 11/05/22 21:52 11/05/22 21:51 11/05/22 21:51 11/05/22 21:50 11/05/22 21:50 11/05/22 21:47 11/05/22 21:47 11/05/22 21:47 11/05/22 21:45 11/05/22 21:45 11/05/22 21:44 11/05/22 21:44 11/05/22 21:42 11/05/22 21:42 11/05/22 21:42 11/05/22 21:40 11/05/22 21:40 11/05/22 21:37 11/05/22 21:37 11/05/22 21:38 11/05/22 21:38 11/05/22 21:36 11/05/22 21:36 11/05/22 21:32 11/05/22 21:32 11/05/22 21:32 11/05/22 21:32 11/05/22 21:29 11/05/22 21:29 11/05/22 21:27 11/05/22 21:27 11/05/22 21:28 11/05/22 21:28 11/05/22 21:25 11/05/22 21:25 11/05/22 21:22 11/05/22 21:22 11/05/22 21:17 11/05/22 21:17 11/05/22 21:12 11/05/22 21:12 11/05/22 21:08 11/05/22 21:08 11/05/22 21:07 11/05/22 21:07 11/05/22 21:02 11/05/22 21:02 11/05/22 21:00 11/05/22 21:00 11/05/22 20:58 11/05/22 20:58 11/05/22 20:57 11/05/22 20:57 11/05/22 20:52 11/05/22 20:52 11/05/22 20:47 11/05/22 20:47 11/05/22 20:44 11/05/22 20:44 11/05/22 20:42 11/05/22 20:42 11/05/22 20:37 11/05/22 20:37 11/05/22 20:32 11/05/22 20:32 11/05/22 20:27 11/05/22 20:27 11/05/22 20:22 11/05/22 20:22 11/05/22 20:17 11/05/22 20:17 11/05/22 20:17 11/05/22 20:17 11/05/22 20:12 11/05/22 20:12 11/05/22 20:07 11/05/22 20:07 11/05/22 20:02 11/05/22 20:02 11/05/22 19:57 11/05/22 19:57 11/05/22 19:52 11/05/22 19:52 11/05/22 19:47 11/05/22 19:47 11/05/22 19:44 11/05/22 19:44 11/05/22 19:42 11/05/22 19:42 11/05/22 19:37 11/05/22 19:37 11/05/22 19:32 11/05/22 19:32 11/05/22 19:27 11/05/22 19:27 11/05/22 19:22 11/05/22 19:22 11/05/22 19:17 11/05/22 19:17 11/05/22 19:15 11/05/22 19:15 11/05/22 19:12 11/05/22 19:12 11/05/22 19:09 11/05/22 19:09 11/05/22 19:07 11/05/22 19:07 11/05/22 19:02 11/05/22 19:02 11/05/22 18:57 11/05/22 18:57 11/05/22 18:52 11/05/22 18:52 11/05/22 18:47 11/05/22 18:47 11/05/22 18:44 11/05/22 18:44 11/05/22 18:42 11/05/22 18:42 11/05/22 18:00 11/05/22 18:00 11/05/22 18:37 11/05/22 18:37 11/05/22 17:30 11/05/22 17:30 11/05/22 18:32 11/05/22 18:32 11/05/22 18:27 11/05/22 18:27 11/05/22 18:22 11/05/22 18:22 11/05/22 18:17 11/05/22 18:17 11/05/22 17:21 11/05/22 17:21 11/05/22 18:12 11/05/22 18:12 11/05/22 18:07 11/05/22 18:07 11/05/22 18:02 11/05/22 18:02 11/05/22 17:57 11/05/22 17:57 11/05/22 17:56 11/05/22 17:56 11/05/22 17:52 11/05/22 17:52 11/05/22 17:47 11/05/22 17:47 11/05/22 17:46 11/05/22 17:46 11/05/22 17:42 11/05/22 17:42 11/05/22 17:37 11/05/22 17:37 11/05/22 17:32 11/05/22 17:32 11/05/22 17:27 11/05/22 17:27 11/05/22 17:22 11/05/22 17:22 11/05/22 17:17 11/05/22 17:17 11/05/22 16:30 11/05/22 16:30 11/05/22 17:12 11/05/22 17:12 11/05/22 17:07 11/05/22 17:07 11/05/22 17:02 11/05/22 17:02 11/05/22 16:57 11/05/22 16:57 11/05/22 16:52 11/05/22 16:52 11/05/22 16:47 11/05/22 16:47 11/05/22 16:44 11/05/22 16:44 11/05/22 16:42 11/05/22 16:42 11/05/22 16:37 11/05/22 16:37 11/05/22 16:32 11/05/22 16:32 11/05/22 16:27 11/05/22 16:27 Pain Intensity Abdomen: Pain Intensity: 0 Transfer of Care Handoff Completed per policy Notes Mental Status: alert / awake / arousable and participated in evaluation Patient Amnestic to Procedure: No Nausea / Vomiting: adequately controlled Pain: adequately controlled Airway Patency, RR, SpO2: stable & adequate BP & HR: stable & adequate Hydration State: stable & adequate Neuraxial Anesthesia: was administered and sensory block resolved Anesthetic Complications: no major complications apparent and Pt Satisfied with anesthetic care
[2022-11-07] MEDS: IBUPROFEN 600 MG TAB PO PRN ×3 (00:23→12:26)
--- NOTE | 2022-11-07 06:02 | Obstetrical Progress Note ---
Date of Service <Kendra Flores DO - Last Filed: 11/07/22 06:49> November 07, 2022 Assessment & Plan <Kendra FloresDO - Last Filed: 11/07/22 06:49> (1) Status post section: Wood is out, trial of voiding, continue OOB and ambulation and then progress diet as tolerated <Daya Glasgow MD, FACOG - Last Filed: 11/07/22 07:25> (1) Status post section: Day #:: 1 Subjective <Kendra Flores DO - Last Filed: 11/07/22 06:49> Brii is a 22 y/o female who is POD #1 following delivery at 39 6/7 weeks. She reports feeling well overall this morning. Moderate abdominal cramping, pain well managed on analgesics. Wood was taken out around 0100, has not voided yet. Limited fluid intake per nursing.Got up to walk to bathroom. Is passing gas, no bowel movement. Has some persistent lochia with some improvement this morning. Currently breast feeding. Review of Systems Denies fever, chills, sweats Denies shortness of breath, difficulty breathing, chest pain, palpitations, chest pressure. Denies breast pain. Denies dysuria. Denies headache or changes in vision. Physical Exam <Kendra Flores DO - Last Filed: 11/07/22 06:49> General: Alert, oriented. No acute distress. Cardiac: Regular rate and rhythm, no murmurs/rubs/gallops. Respiratory: Clear to auscultation bilaterally a/p, no wheezes/rales/rhonchi. No increased work of breathing. Symmetrical chest rise. No respiratory distress. Abdomen: Soft, nontender, nondistended. Uterus: Uterine fundus firm, palpable 1 cm below umbilicus. Surgical scar clean and healing well. Lower Extremities: No lower extremity edema or swelling. No deep calf pain. Results & Data <Kendra FloresDO - Last Filed: 11/07/22 06:49> Vital Signs (Past 12 Hours) Vital Signs Temp Pulse Resp BP Pulse Ox O2 Del Method 11/07/22 04:16 36.5 C 67 16 93/55 L Room Air 11/06/22 23:05 16 96 11/06/22 23:47 37.5 C 93 H 16 98/60 L 97 Room Air 11/06/22 20:00 36.8 C 81 16 97/63 L 97 Room Air 11/06/22 22:15 16 96 11/06/22 21:05 16 97 11/06/22 20:00 16 97 11/06/22 19:15 16 97 11/06/22 18:15 16 96 <Daya Glasgow MD, FACOG - Last Filed: 11/07/22 07:25> Co-Signing Physician Notes Resident Physician Supervision Note: I was present with Dr. Flores during the history and exam. I discussed the case with the resident and agree with the findings and plan as documented in the note. Any exceptions or clarifications are listed here: pt denies complaints, although when i saw her she appeared in alot of pain, apparently no recent pain meds but they do help her pain when she takes them. just voided in BR. mavis po, baby. abd soft mod, appropriate tenderness with palpation of fundus, firm at 1 down, incision c/d/i. ext nt calves. +1 edema. pod #1, enc ambulation, pain meds. cont with regular diet and ensure good voiding. enc use of scds when at rest and leg exercises other times. breast, rh pos, ri. [place] used for entire visit. pt nurse had popped her head in door while we were checking her and aware to bring pt pain meds. labs pending this am, did go over watching for fever, labs and pt exam but that her tenderness can be sukhjinder ropriate given her course. Documented By: Daya Glasgow MD, FACOG Resident Activity Tracking <Kendra Flores, DO - Last Filed: 11/07/22 06:49> Resident Involvement: Resident Care Provided Care Provided: OB Delivery
[2022-11-07] MEDS: PRENATAL VITAMIN 1 TAB PO SCH (07:22)
[2022-11-07] MEDS: oxyCODONE/ACETAMINOPHEN 5mg/325mg TAB PO PRN ×2 (07:23→12:25)
[2022-11-07] MEDS: FERROUS SULFATE 325 MG TAB PO SCH (07:23)
[2022-11-07] MEDS: DOCUSATE SODIUM 100 MG CAP PO SCH ×2 (07:23→19:59)
[2022-11-07] MEDS: SIMETHICONE 80 MG CHEW PO SCH ×4 (07:23→19:59)
[2022-11-07 07:36] LABS: Basophils # (auto) 0.05 K/uL (0-0.2); Basophils % (auto) 0.2 %; Eosinophils # (auto) 0.03 K/uL (0-0.50); Eosinophils % (auto) 0.1 %; Hematocrit (blood only) 27.7 % (37.0-47.0); Hemoglobin 9.1 g/dl (12.0-16.0); Immature Granulocytes # (auto) 0.34 K/uL (0.01-0.20); Immature Granulocytes % (auto) 1.3 %; Lymphocytes # (auto) 2.36 K/uL (1.2-3.4); Lymphocytes % (auto) 9.2 %; Mean Corpuscular Hemoglobin 27.1 pg (25.0-34.0); Mean Corpuscular Hgb Conc 32.9 g/dL (32.0-36.0); Mean Corpuscular Volume 82.4 fL (80.0-100.0); Mean Platelet Volume 11.6 fL (9.4-12.4); Monocytes # (auto) 1.44 K/uL (0.11-0.59); Monocytes % (auto) 5.6 %; Neutrophils # (auto) 21.44 K/uL (1.40-6.50); Neutrophils % (auto) 83.6 %; Platelet Count 133 K/uL (130-400); RBC Morphology Unremarkable; RDW Coefficient of Variation 13.4 % (11.5-14.5); RDW Standard Deviation 40.1 fL (36.4-46.3); Red Blood Count 3.36 M/uL (4.20-5.40); White Blood Count 25.66 K/ul (4.8-10.8)
[2022-11-07] MEDS ORDERED: bisacodyL 5 MG TABEC PO SCH (20:00)
[2022-11-08] MEDS: IBUPROFEN 600 MG TAB PO PRN ×2 (00:58→14:19)
[2022-11-08] MEDS: oxyCODONE/ACETAMINOPHEN 5mg/325mg TAB PO PRN ×2 (00:59→14:19)
[2022-11-08] MEDS ORDERED: bisacodyL 10 MG SUPP PR PRN (06:01)
[2022-11-08 07:00] LABS: Basophils # (auto) 0.02 K/uL (0-0.2); Basophils % (auto) 0.1 %; Eosinophils # (auto) 0.16 K/uL (0-0.50); Eosinophils % (auto) 0.9 %; Hematocrit (blood only) 25.7 % (37.0-47.0); Hemoglobin 8.3 g/dl (12.0-16.0); Immature Granulocytes # (auto) 0.13 K/uL (0.01-0.20); Immature Granulocytes % (auto) 0.8 %; Lymphocytes # (auto) 2.42 K/uL (1.2-3.4); Lymphocytes % (auto) 14.2 %; Mean Corpuscular Hemoglobin 27.3 pg (25.0-34.0); Mean Corpuscular Hgb Conc 32.3 g/dL (32.0-36.0); Mean Corpuscular Volume 84.5 fL (80.0-100.0); Mean Platelet Volume 12.1 fL (9.4-12.4); Monocytes # (auto) 0.76 K/uL (0.11-0.59); Monocytes % (auto) 4.4 %; Neutrophils % (auto) 79.6 %; Platelet Count 138 K/uL (130-400); RDW Coefficient of Variation 13.5 % (11.5-14.5); RDW Standard Deviation 41.1 fL (36.4-46.3); Red Blood Count 3.04 M/uL (4.20-5.40); White Blood Count 17.09 K/ul (4.8-10.8)
[2022-11-08] MEDS: SIMETHICONE 80 MG CHEW PO SCH ×4 (08:34→21:02)
[2022-11-08] MEDS: PRENATAL VITAMIN 1 TAB PO SCH (08:35)
[2022-11-08] MEDS: DOCUSATE SODIUM 100 MG CAP PO SCH ×2 (08:35→21:02)
[2022-11-08] MEDS: FERROUS SULFATE 325 MG TAB PO SCH (08:35)
--- NOTE | 2022-11-08 08:36 | Obstetrical Progress Note ---
Date of Service November 08, 2022 Assessment & Plan (1) Status post section: Day 2 status post primary . Patient doing well today without significant concerns. Continue care Subjective Ambulation: ambulating normally Voiding: no voiding problems Passing Gas:: Yes Diet Tolerance:: regular diet Lochia:: Moderate Feeding Type:: breast feeding Physical Exam Constitutional WD/WN, vitals as above Respiratory normal respiratory effort; no respiratory distress and no labored breathing Cardiovascular No calf tenderness Gastrointestinal (Abdomen) Inspection/Auscultation: abdomen normal to inspection; abdomen not distended Percussion/Palpation: abdomen soft; abdomen nontender, no guarding and abdomen not rigid incision healing well Genitourinary OB Exam Abdomen: + fundal height Fundus: + firm and + relation to umbilicus (Below); not tender or not boggy Results & Data Vital Signs (Past 12 Hours) Vital Signs Temp Pulse Resp BP O2 Del Method 11/08/22 03:00 36.8 C 72 16 99/62 L Room Air 11/07/22 23:21 36.6 C 76 16 105/67 Room Air
[2022-11-09] MEDS: oxyCODONE/ACETAMINOPHEN 5mg/325mg TAB PO PRN ×2 (04:12→12:20)
[2022-11-09] MEDS: IBUPROFEN 600 MG TAB PO PRN ×2 (04:13→12:21)
--- NOTE | 2022-11-09 06:47 | Obstetrical Progress Note ---
Date of Service November 09, 2022 Assessment & Plan (1) Encounter for care and examination after delivery: Plan - Overall, feeling well and eating well today - Infant feeding going well without concern - Urinating and passing gas appropriately - Ambulating well in room - Pain controlled w/ Ibuprofen and Percocet - Hgb 8.3 on 11/08 - Vitals stable and wnl - Routine PP care progressing well - Anticipate discharge @ 48-72 hours PP - Recommending f/u outpatient in 6 weeks Admission and Anticipated Discharge Date Admission Date: November 05, 2022 Supervising Physician Co-Signing Physician Notes patient seen and evaluated with resident and agree with the above findings and plan. stable for discharge Subjective Patient is a 22F who is POD #3 following delivery at 39 5/7. She reports feeling well overall this morning. Patient's elected to translate during examination. Wax Pattern Assembler option made available. - Ambulation - well throughout room - Voiding/Wood - independent voids, no dysuria or pressure - Gas/Stool - passing gas, no bowel movement - Diet - regular, no nausea or emesis - Lochia - diminishing, moderate amount - Infant Feeding Type - breast feeding and bottle supplementing - Pain Level - 4/10, controlled with Ibuprofen and Percocet Review of Systems - Denies fever, chills, sweats - Denies shortness of breath, difficulty breathing, chest pain, palpitations, chest pressure. - Denies breast pain. - Denies dysuria. - Denies headache or changes in vision. Physical Exam Physical Exam: General: Alert, oriented. No acute distress. Cardiac: RRR, normal S1/S2, no murmurs/rubs/gallops. Respiratory: Non-labored, CTAB, no wheezes/rales/rhonchi. Symmetric chest rise. Abdomen: Soft, nontender, nondistended. Bowel sounds present. Incision clean/dry w/o erythema or purulence. Uterus: Uterine fundus firm, palpable 2 cm below umbilicus. Lower Extremities: No lower extremity edema or swelling. No deep calf pain. Roro's negative bilaterally. Results & Data Vital Signs (Past 12 Hours) Vital Signs Temp Pulse Pulse Resp BP BP Pulse Ox 11/09/22 04:15 37.0 C 65 16 120/79 98 11/08/22 20:45 11/08/22 20:45 36.6 C 70 18 101/64 98 O2 Del Method 11/09/22 04:15 Room Air 11/08/22 20:45 Room Air 11/08/22 20:45 Room Air Resident Activity Tracking Resident Involvement: Resident Care Provided Care Provided: OB Delivery
[2022-11-09] MEDS: SIMETHICONE 80 MG CHEW PO SCH ×2 (08:44→13:24)
[2022-11-09] MEDS: PRENATAL VITAMIN 1 TAB PO SCH (08:44)
[2022-11-09] MEDS: DOCUSATE SODIUM 100 MG CAP PO SCH (08:44)
[2022-11-09] MEDS: FERROUS SULFATE 325 MG TAB PO SCH (08:45)
--- NOTE | 2022-11-12 14:33 | Discharge Summary ---
Date of Service November 12, 2022 Admission HPI Per Admitting Provider Patient is a 22[place] female who presents to labor and delivery at 39 5/7 weeks with complaints of leaking of fluid since 11pm. She notes low back pain for a couple of days and some discomfort that comes and goes. She had a little bit of bleeding. +fm. Having a boy. 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 NON-REACTIVE (NON-REACTIVE) 05/25/22 Hepatitis C Antibody (EIA) NON-REACTIVE (NON-REACTIVE) 05/25/22 HIV (1&2) Ag and Ab Confirmation NON-REACTIVE (NON-REACTIVE) 05/25/22 Glucose 1 Hour 50 gm Load 154 mg/dl (70-130) H 05/25/22 Maternal Serum Alpha Fetoprotein 32.1 ng/mL 05/25/22 OB Optional Labs: Chlamydia trachomatis RNA Not Detected (NotDetected) 05/25/22 Neisseria gonorrhoeae RNA Not Detected (NotDetected) 05/25/22 Alpha Fetoprotein Triple Screen SEE NOTE 05/25/22 Labs Reviewed: cfdna-low risk--mln afp neg gbs neg 2 hr gtt x 2 nl Discharge Data Consultations 11/05/22 01:11 Consult Anesthesiology Stat Procedures Performed Operation Date: 11/06/22 05:00 Actual Procedures p Section in LD(Bilateral) - Apoorva Gallardo MD Hospital Course (1) Encounter for care and examination after delivery: Plan - Overall, feeling well and eating well today - feeding going well without concern - Urinating and passing gas appropriately - Ambulating well in room - Pain controlled w/ Ibuprofen and Percocet - Hgb 8.3 on 11/08 - Vitals stable and wnl - Routine PP care progressing well - Anticipate discharge @ 48-72 hours PP - Recommending f/u outpatient in 6 weeks Coding Level of Care Code None Diagnoses Encounter for care and examination after delivery Z39.2
--- NOTE | 2022-11-14 14:27 | Coding Query ---
CODING QUERY To promote full compliance with coding requirements relating to patient care, provider participation is requested in all cases of mine captain uncertainty. Please assist us with the question(s) below: Coding Question(s): Pt admitted with PROM , failure of descent after admission. Operative report stated Cervical extension of the hysterotomy. Seeking to determine if the cervical extension was intended or complication of the section . Please check below & thank you . Michael Collier VISUAL MERCHANDISING SPECIALIST [facility] Physician's Response(s): The Cervical extension was an intended procedure The Cervical extension was a complication of the hysterotomy Cannot clinically determine if the cervical extension was intended or a complication of the procedure ___X Other: Please document: Cervical extension is a common occurrence during and would not generally be considered a complication. It is nevertheless important to document, because it can impact the patient's future risk vs /TOLAC risk. Principal Diagnosis: "that condition established after study, to be chiefly responsible for occasioning the admission of the patient to the hospital for care." Co-Existing Principal Diagnosis: "when two or more diagnoses equally meet the criteria for principal diagnosis as determined by the circumstances of admission, diagnostic work up, and/or therapy provided, and the Alphabetic Index, Tabular List, or another coding guideline does not provide sequencing direction, any one of the diagnoses may be sequenced first." "When the physician has documented what appears to be a current diagnosis in the body of the record, but has not included the diagnosis in the final diagnostic statement, the physician should be asked whether the diagnosis should be added." (Source Coding [facility] 2 QTR90. p3-4) JAXSON
== END 2022-11-09 16:05 | disposition home or self-care (01) | DRG 786 ==
LOC: OPB 00:10 → 4S1 00:12 → 4E2 11-06 08:50

== ENCOUNTER 2024-04-24 07:30 | Inpatient (IN) ==
--- NOTE | 2024-04-13 10:48 | History & Physical Report ---
Date of Service April 13, 2024 Assessment & Plan (1) Encounter for supervision of normal in multigravida: (2) History of low transverse section: Plan Discussed indications, risks, benefits, alternatives with risks including infection, bleeding, injury to adjacent structures (bowel, bladder, ureters, blood vessels, nerves, baby), possible need for blood transfusion and/or life saving hysterectomy, VTE. Consent reviewed in detail w/ pt and signed after all questions answered to her satisfaction with cyber forensic specialist History of Present Illness Chief Complaint: Preop Primary Care Provider: NO PCP Broadcast Traffic Coordinator used for duration of visit and consent 23 yo presents for preop for planned repeat CS at 39+ weeks. 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 G2 current denies hx stis Allergies Allergy/AdvReac Type Severity Reaction Status Date / Time No Known Allergies Allergy Verified 04/13/24 09:26 Home Medications Medication Instructions Recorded Confirmed Type prenat.vits,briana,tfx-[id number] 1 tab PO DAILY 05/20/22 04/13/24 History Patient History Medical History (Updated 09/24/23 @ 14:29 by Mera Leung, PERFECTO) Encounter for care and examination after delivery Late care affecting Supervision of normal first with 39 completed weeks gestation SROM (spontaneous rupture of membranes) Patient denies significant medical history Surgical History Status post section S/P appendectomy Family History Denies family history of Ovarian cancer Prostate cancer Myocardial infarction Breast cancer Colorectal cancer Social History Smoking Status: Never smoker Do You Dip or Chew Tobacco: No; Hx Alcohol Use: No Hx Substance Use: No Communication Ability: Effective Communication Tools: IPad Broadcast Traffic Coordinator Required: Yes Beliefs That Will Affect Care: Mormon Mormon Beliefs: no pork and Cultural Cultural Beliefs: no pork marital status: marital status details: Surendra (28) [phone] Current Living Situation: Alone Current Living Situation Comment: lives with spouse, one kid current occupational status: unemployed Assistive Devices: None Physical Exam Constitutional: WD/WN, vitals as above Respiratory: normal respiratory effort, lungs clear to auscultation Cardiovascular: RRR, no murmur, no edema Genitourinary: FHT 140s Results & Data Laboratory Results OB Labs: Blood Type B Positive 09/29/23 Antibody Screen NEGATIVE 09/29/23 Hgb 12.7 g/dl (12.0-16.0) 02/09/24 Hct 36.9 % (37.0-47.0) L 02/09/24 MCV 89.0 fL (80.0-100.0) 09/29/23 Plt Count 203 K/uL (130-400) 09/29/23 Rubella IgG Antibody Immune (Immune) 09/29/23 RPR Nonreactive (Nonreactive) 09/29/23 Hep Bs Antigen NON-REACTIVE (NON-REACTIVE) 09/29/23 Hepatitis C Ab (EIA) NON-REACTIVE (NON-REACTIVE) 09/29/23 HIV (1&2) Ag & Ab Conf NON-REACTIVE (NON-REACTIVE) 09/29/23 Glucose 1 Hr 50 gm 143 mg/dl (70-130) H 02/09/24 Maternal Serum AFP 32.1 ng/mL 05/25/22 OB Optional Labs: Chlamydia trachomatis RNA Not Detected (NotDetected) 09/29/23 Neisseria gonorrhoeae RNA Not Detected (NotDetected) 09/29/23 Alpha Fetoprotein Triple Screen SEE NOTE 05/25/22 Labs Reviewed: cfdna-low risk prior afp neg--akh GBS neg Diagnostic Findings Posterior placenta Coding Level of Care Code None Diagnoses Encounter for supervision of normal in multigravida Z34.80 History of low transverse section Z98.891
--- NOTE | 2024-04-14 09:19 | Anesthesiology Consultation ---
Date of Service April 14, 2024 Assessment & Plan (1) Encounter for pre-operative examination: Infectious disease screening: Per assessment on 04/14/24: No known recent infectious disease contacts or current infectious disease symptoms. Chart Review Chart Review: order entry clerk initiated History Surgery Operation Date: 04/24/24 09:10 Proposed Procedures p Section in LD (Delivery of Baby Through Abdominal Incision) - Dea Kamara MD Height/Weight Height: 5 ft 3 in Weight: 79.379 kg Allergies Allergy/AdvReac Type Severity Reaction Status Date / Time No Known Allergies Allergy Verified 04/14/24 07:52 Medications Home Medications Medication Instructions Recorded Confirmed Last Taken No Known Home Medications 04/14/24 04/14/24 Unknown Past Medical History Medical History Patient denies significant medical history Past Family History Family History Denies family history of Ovarian cancer Prostate cancer Myocardial infarction Breast cancer Colorectal cancer Past Surgical History Surgical History S/P appendectomy Per records, "Patients spouse confirmed this surgery - Pt denies surgical history, but has either a large stretch hazel or RLQ scar suspicious for open appy" Status post section Social History Smoking Status: Never smoker Do You Dip or Chew Tobacco: No Hx Alcohol Use: No Hx Substance Use: No substance use type: does not use
[2024-04-24] MEDS: LACTATED RINGER'S 1,000 ML IV SCH (09:20)
[2024-04-24 09:21] LABS: Mean Corpuscular Hemoglobin 29.3 pg (25.0-34.0); Mean Corpuscular Hgb Conc 33.3 g/dL (32.0-36.0); Mean Platelet Volume 10.2 fL (9.4-12.4); Platelet Count 193 K/uL (130-400); RDW Coefficient of Variation 12.5 % (11.5-14.5); RDW Standard Deviation 39.8 fL (36.4-46.3); Red Blood Count 4.43 M/uL (4.20-5.40); White Blood Count 11.24 K/ul (4.8-10.8)
[2024-04-24] MEDS ORDERED: ceFAZolin 2000MG 2,000 MG/15 ML SYR IV SCH (09:28)
[2024-04-24] MEDS: ACETAMINOPHEN 500 MG TAB PO SCH (09:45)
[2024-04-24] MEDS: CITRIC ACID/SODIUM CITRATE 15 ML UDC PO SCH (09:47)
[2024-04-24] MEDS ORDERED: MoRPHine SULFATE PF 1 MG/ML 10 ML AMP/VIAL ONE (09:53)
[2024-04-24] MEDS: ceFAZolin 2000MG 2,000 MG/15 ML SYR IV SCH (10:04)
[2024-04-24] MEDS ORDERED: LACTATED RINGER'S 1,000 ML IV SCH ×2 (10:15→11:57)
--- NOTE | 2024-04-24 10:16 | History & Physical Bridge Note ---
Date of Service April 24, 2024 History & Physical Bridge Note I have examined the patient, reviewed the History & Physical and in the interval since the performance of the History & Physical I have noted the following changes of clinical significance: no changes noted
[2024-04-24] MEDS ORDERED: PHENYLEPHRINE 100MCG/ML 10ML SYR IV ONE (10:47)
[2024-04-24] MEDS ORDERED: LACTATED RINGER'S 500 ML IV PRN (11:03)
[2024-04-24] MEDS ORDERED: NALOXONE HCL 0.4 MG/1 ML VIAL/CARP IV PRN (11:03)
[2024-04-24] MEDS ORDERED: MoRPHine SULFATE 2 MG/ML CARP IV PRN (11:03)
[2024-04-24] MEDS ORDERED: MEPERIDINE HCL 25 MG/ML CARP/VIAL IV PRN (11:03)
[2024-04-24] MEDS ORDERED: HYDROmorphone INJ 0.5 MG/0.5 ML SYR IV PRN (11:03)
[2024-04-24] MEDS ORDERED: ePHEDrine sulfate 50 MG/ML AMP IV PRN (11:03)
[2024-04-24] MEDS ORDERED: DROPERIDOL 5 MG/2 ML VIAL IV PRN (11:03)
[2024-04-24] MEDS ORDERED: MoRPHine SULFATE PF 1 MG/ML 10 ML AMP/VIAL INT SPINAL ONE (11:03)
[2024-04-24] MEDS ORDERED: NALBUPHINE HCL INJ 10 MG/ML AMP IV PRN (11:03)
[2024-04-24] MEDS ORDERED: NALOXONE HCL 0.08 MG in SYRINGE 1.8 ML IV PRN (11:03)
[2024-04-24] MEDS ORDERED: NALOXONE HCL 1 MG in SODIUM CHLORIDE 0.9% 1,000 ML IV PRN (11:03)
[2024-04-24] MEDS ORDERED: diphenhydrAMINE 50 MG/ML VIAL IV PRN (11:03)
[2024-04-24] MEDS ORDERED: NO NARCOTICS OR SEDATIVES SCH (11:15)
[2024-04-24] MEDS ORDERED: SODIUM CHLORIDE 0.9% 1,000 ML IV SCH (11:15)
[2024-04-24] MEDS ORDERED: DC INTRASPINAL MORPHINE SCH (11:15)
[2024-04-24] MEDS ORDERED: OXYTOCIN 10 UNITS/ML VIAL ONE (11:18)
--- NOTE | 2024-04-24 11:27 | Operative Report ---
Post Operative Report Pre & Post Diagnosis Operation Date: 04/24/24 09:10 Pre-Op Diagnosis: Intrauterine at 39 Weeks;Elective Repeat Caesarean Section Post-Op Diagnosis: Same; Delivery of a live male child at 1041 I identified the patient and participated in the time-out.: Yes Procedure Operation Date: 04/24/24 09:10 Actual Procedures p Repeat Low Transverse Section in LD (Delivery of Baby Through Abdominal Incision) - Dea Kamara MD Surgeon Dea Kamara MD Integrated Marketing Manager MD Arleen Quantitative Blood Loss (QBL) 424 Findings Consistent with Post-Op Diagnosis Normal appearing uterus, bilateral fallopian tubes and ovaries. Viable male with APGARs of 9 and 9 at 1 and 5 minutes, respectively Fluids UOP 400cc clear urine Specimens Cord blood, placenta Drains Wood draining clear urine Anesthesia Type Spinal Complications none Disposition Accompanied Patient To Recovery: Yes Disposition: L&D Indications 23 yo at 39 2/7 wga presents for planned repeat CS Description of Procedure The patient was taken to the operating room after consents were ensured. The patient was properly identified. Spinal anesthesia was obtained without difficulty. The patient was placed in a dorsal supine position with left lateral tilt, then prepped and draped in normal sterile fashion. Surgical time out was performed. Antibiotics were given for prophylaxis. Anesthesia was tested to ensure adequate surgical levels. Pfannenstiel skin incision was performed and carried down to the underlying fascia with a knife. The fascia was then nicked in the midline and extended laterally with pickups and Linn scissors. Superior portion of the fascia was grasped with Kochers x2 and elevated off the underlying rectus muscles using blunt dissection. Inferior portion of the fascia was then grasped with Saij clamps x2 and also elevated off the underlying muscles with blunt dissection. Midline was identified. The peritoneum was then entered and extended to provide adequate room for delivery of baby. A hand was inserted into the abdomen, uterus was noted to be clear of adhesions. Bladder blade was inserted, bladder flap was created in the usual fashion. A low transverse uterine incision was made in the uterus and extended bluntly in a superior to inferior fashion. Amniotomy was made with clear fluid at the time of rupture. head was grasped and elevated to the hysterotomy in an atraumatic fashion but could not be delivered through. Kiwi vacuum was called for and applied at the flexion point and increased to the green zone. With fundal pressure and one pull, baby delivered in JULITA position, no nuchal cord. Kiwi was removed. Remainder of the body delivered without incident. Nose and mouth were bulb suctioned on the surgical field. The cord was double clamped and cut, baby was handed off to awaiting pediatrics staff. Cord segment and blood were obtained. Placenta was then expressed from the uterus. The uterus was exteriorized. Several passes were made inside the uterus to remove the remaining membranes. Attention was then turned to the hysterotomy, which was then closed with a running locked suture of 0 Vicryl on a CTX needle. An imbricating layer was then performed using 0-Monocryl. There was noted to be good hemostasis. The posterior cul-de-sac was then inspected and cleaned of clot and debris. The hysterotomy was again inspected and noted to be hemostatic. The uterus was returned to the abdomen. The right and left pericolic gutters were cleaned of all clot and debris. The hysterotomy was again noted to be hemostatic. Space of Retzius was noted to be hemostatic. The fascia was then closed with a running suture of 0 Vicryl on a CT1 needle. Subcutaneous tissue was copiously irrigated and noted to be hemostatic. Subcutaneous tissue was re-approximated using 2-0 plain gut. The skin was then closed with a running suture of 3-0 Monocryl in a subcuticular fashion. At termination of the procedure, fundal pressure was applied and a moderate amount of lochia was expressed. Pressure dressing was applied to the patient. She tolerated the procedure well. All sponge, needle, instrument counts were correct x 2. I attest to the content of the Intraoperative Record and any orders documented therein. Any exceptions are noted below. OB Procedure Charges 60409
[2024-04-24] MEDS: ONDANSETRON INJ 2 MG/ML 2 ML VIAL IV PRN (11:37)
[2024-04-24] MEDS ORDERED: BENZOCAINE 20% SPRY 85 APPLN/85 GM CAN EXT PRN (11:57)
[2024-04-24] MEDS ORDERED: HYDROCORTISONE ACETATE 25 MG SUPP PR PRN (11:57)
[2024-04-24] MEDS ORDERED: MAGNESIUM HYDROXIDE SUSP 30 ML UDC PO PRN (11:57)
[2024-04-24] MEDS ORDERED: CALCIUM CARBONATE 500 MG CHEWABLE TAB PO PRN (11:57)
[2024-04-24] MEDS ORDERED: ONDANSETRON INJ 2 MG/ML 2 ML VIAL IV PRN (11:57)
[2024-04-24] MEDS ORDERED: SENNA 8.6 MG TAB PO PRN (11:57)
[2024-04-24] MEDS: KETOROLAC 30 MG/ML VIAL IV PRN (12:06)
[2024-04-24] MEDS: OXYTOCIN 20 UNITS/1002ML LR IV ONE (12:11)
--- NOTE | 2024-04-24 12:51 | Anesthesiology Progress Note ---
Date of Service April 24, 2024 Anesthesia Post Procedure Vital Signs Vital Signs: Temp Pulse Resp BP Pulse Ox 04/24/24 12:49 53 L 94 04/24/24 12:47 57 L 96 04/24/24 12:44 59 L 98/61 L 04/24/24 12:42 60 96 04/24/24 12:37 62 99 04/24/24 12:34 61 104/55 L 04/24/24 12:32 60 100 04/24/24 12:27 57 L 98 04/24/24 12:25 57 L 94 04/24/24 12:24 63 110/52 L 04/24/24 12:22 61 99 04/24/24 12:18 71 93 04/24/24 12:17 67 98 04/24/24 12:14 76 106/56 L 04/24/24 12:12 88 97 04/24/24 12:07 55 L 98 04/24/24 12:04 59 L 98/57 L 04/24/24 12:02 74 97 04/24/24 11:57 60 99 04/24/24 11:54 66 90/54 L 04/24/24 11:52 69 98 04/24/24 11:51 61 93 04/24/24 11:47 77 97 04/24/24 11:45 82 103/41 L 04/24/24 11:42 75 100 04/24/24 11:37 81 99 04/24/24 11:34 108 H 136/71 04/24/24 11:32 96 H 94 04/24/24 11:27 66 98 04/24/24 11:24 62 105/56 L 04/24/24 09:47 36.8 C 18 04/24/24 09:07 80 117/69 Transfer of Care Handoff Completed per policy Notes Mental Status: alert / awake / arousable and participated in evaluation Nausea / Vomiting: adequately controlled Pain: adequately controlled Airway Patency, RR, SpO2: stable & adequate BP & HR: stable & adequate Hydration State: stable & adequate Neuraxial Anesthesia: was administered and sensory block is resolving Anesthetic Complications: no major complications apparent and Pt Satisfied with anesthetic care
[2024-04-24] MEDS: ACETAMINOPHEN 325 MG TAB PO SCH (12:52)
[2024-04-24] MEDS: IBUPROFEN 600 MG TAB PO SCH (12:53)
[2024-04-24] MEDS: SIMETHICONE 80 MG CHEW PO SCH (12:54)
[2024-04-24] MEDS: OXYTOCIN 20 UNITS/LR 1,002 ML IV SCH (13:03)
[2024-04-24] MEDS: DOCUSATE SODIUM 100 MG CAP PO SCH (20:34)
[2024-04-24] MEDS ORDERED: METOCLOPRAMIDE HCL INJ 5 MG/ML 2 ML VIAL IV PRN (22:22)
[2024-04-24] MEDS ORDERED: PROMETHAZINE HCL 12.5 MG in SODIUM CHLORIDE 0.9% 50 ML IV PRN (22:22)
[2024-04-24] MEDS ORDERED: DEXAMETHASONE SOD INJ 4 MG/ML VIAL IV PRN (22:22)
[2024-04-24] MEDS: dexAMETHasone 4 MG in SYRINGE 0 ML IV ONE (23:43)
[2024-04-25] MEDS ORDERED: oxyCODONE HCL IR 5 MG TAB (IMMEDIATE RELEASE) PO PRN (05:04)
[2024-04-25] MEDS ORDERED: HYDROmorphone INJ 0.5 MG/0.5 ML SYR IV PRN (05:04)
[2024-04-25] MEDS ORDERED: PROMETHAZINE 12.5 MG/50.5 ML BAG IV PRN (05:04)
[2024-04-25] MEDS ORDERED: diphenhydrAMINE Capsule 25 MG CAP PO PRN (05:04)
[2024-04-25] MEDS ORDERED: diphenhydrAMINE 50 MG/ML VIAL IV PRN (05:04)
[2024-04-25] MEDS ORDERED: ACETAMINOPHEN 500 MG TAB PO SCH (06:00)
[2024-04-25] MEDS ORDERED: ceFAZolin 2000MG 2,000 MG/15 ML SYR IV SCH (06:00)
[2024-04-25] MEDS ORDERED: CITRIC ACID/SODIUM CITRATE 15 ML UDC PO SCH (06:00)
[2024-04-25 06:19] LABS: Basophils # (auto) 0.03 K/uL (0.00-0.20); Basophils % (auto) 0.2 %; Hematocrit (blood only) 34.3 % (37.0-47.0); Hemoglobin 11.8 g/dl (12.0-16.0); Immature Granulocytes # (auto) 0.15 K/uL (0.01-0.20); Immature Granulocytes % (auto) 0.8 %; Lymphocytes # (auto) 1.74 K/uL (1.20-3.40); Lymphocytes % (auto) 9.3 %; Mean Corpuscular Hemoglobin 29.9 pg (25.0-34.0); Mean Corpuscular Hgb Conc 34.4 g/dL (32.0-36.0); Mean Corpuscular Volume 87.1 fL (80.0-100.0); Mean Platelet Volume 10.8 fL (9.4-12.4); Monocytes # (auto) 0.91 K/uL (0.11-0.59); Monocytes % (auto) 4.9 %; Neutrophils # (auto) 15.85 K/uL (1.40-6.50); Neutrophils % (auto) 84.8 %; Platelet Count 208 K/uL (130-400); RDW Coefficient of Variation 12.4 % (11.5-14.5); RDW Standard Deviation 39.2 fL (36.4-46.3); Red Blood Count 3.94 M/uL (4.20-5.40); White Blood Count 18.68 K/ul (4.8-10.8)
--- NOTE | 2024-04-25 07:13 | Obstetrical Progress Note ---
Date of Service April 25, 2024 Assessment & Plan (1) Previous section: Plan: 1st POD Wood's Discontinued Bandage removed: Wound healthy Ambulation encouraged Breast feed encouraged Continue Normal Ob diet DC plan tomorrow. Admission and Anticipated Discharge Date Admission Date: April 24, 2024 Supervising Physician Co-Signing Physician Notes Resident Physician Supervision Note: I interviewed and examined the patient. Discussed with Dr. Dukes and agree with findings and plan as documented in the note. Any exceptions or clarifications are listed here: POD#1 doing well. Continue routine postop care. Documented By: Lucy Jacobs DO Subjective 1st POD foll LTCS for previouc C section No active complain Pain: Mild Ambulation : To Bathroom Lochia: Moderate Gas: Not aware; BS present Breast feeding try; occasional bottle feed Regular Ob diet: tolerating Vitals: Stable Post op BP low baseline; not symptomatic Review of Systems Review of Systems: As per HPI Physical Exam Physical Exam: General: Alert and oriented. No acute distress. CV: Regular rate and rhythm. No murmurs. Respiratory: CTA bilaterally. No rhonchi, wheezes, or crackles. No increased work of breathing. Abdomen: Positive bowel sounds. Soft, nontender, and nondistended. Uterus: Fundus firm and palpable few cm below umbilicus. Surgical scar clean and healing well. Lower extremities: No LE edema. No deep calf pain. Roro's negative bilaterally. Results & Data Vital Signs (Past 12 Hours) Vital Signs Temp Pulse Resp BP Pulse Ox O2 Del Method 04/25/24 05:03 16 95 04/25/24 04:00 18 96 04/25/24 03:30 37.0 C 65 16 97/61 L 95 Room Air 04/25/24 03:00 16 95 04/25/24 02:03 16 95 04/25/24 01:03 16 95 04/25/24 00:00 37.1 C 67 18 88/53 L 96 Room Air 04/25/24 00:00 18 96 04/24/24 23:00 18 97 04/24/24 22:00 16 96 04/24/24 21:06 18 98 04/24/24 20:00 Room Air 04/24/24 20:00 36.8 C 62 16 100/65 96 Room Air 04/24/24 19:59 16 96 Resident Activity Tracking Resident Involvement: Resident Care Provided Care Provided: OB Delivery
[2024-04-25] MEDS: FERROUS SULFATE 325 MG TAB PO SCH (08:00)
[2024-04-25] MEDS: PRENATAL VITAMIN 1 TAB PO SCH (08:00)
[2024-04-25 17:14] VITALS: TEMP 97.9
[2024-04-25] MEDS: DIPHTHER/TETAN/PERTUS Vaccine (Tdap, Adol/Adult) 0.5mL IM ONE (17:31)
[2024-04-25] MEDS: bisacodyL 5 MG TABEC PO SCH (20:37)
[2024-04-25 23:23] VITALS: RESP 16; O2SAT 96
[2024-04-26 07:01] LABS: Hemoglobin 10.5 g/dl (12.0-16.0)
--- NOTE | 2024-04-26 07:28 | Obstetrical Progress Note ---
Date of Service April 26, 2024 Assessment & Plan (1) Previous section: Plan: 2nd POD Wound healthy Continue Normal Ob diet DC today. Admission and Anticipated Discharge Date Admission Date: April 24, 2024 Supervising Physician Co-Signing Physician Notes Resident Physician Supervision Note: I was present with [Name of resident] during the history and exam. I discussed the case with the resident and agree with the findings and plan as documented in the note. Any exceptions or clarifications are listed here: [None] Documented By: Cornelio Thomas MD, FACOG Subjective 2nd POD foll LTCS for previouc C section No active complain Pain: Mild Ambulation done Lochia: Mild Gas: passed Breast feeding Regular Ob diet: tolerating Vitals: Stable Post op Review of Systems Review of Systems: As per HPI Physical Exam Physical Exam: General: Alert and oriented. No acute distress. CV: Regular rate and rhythm. No murmurs. Respiratory: CTA bilaterally. No rhonchi, wheezes, or crackles. No increased work of breathing. Abdomen: Positive bowel sounds. Soft, nontender, and nondistended. Uterus: Fundus firm and palpable few cm below umbilicus. Surgical scar clean and healing well. Lower extremities: No LE edema. No deep calf pain. Roro's negative bilaterally. Results & Data Vital Signs (Past 12 Hours) Vital Signs Temp Pulse Resp BP Pulse Ox O2 Del Method 04/25/24 23:57 36.6 C 62 16 100/65 96 Room Air 04/25/24 19:42 36.6 C 70 16 95/58 L 96 Room Air
[2024-04-26 09:26] VITALS: BP 104/67; PULSE 55
[2024-04-26] MEDS ORDERED: IBUPROFEN 600 MG TAB PO PRN (11:17)
[2024-04-26] MEDS ORDERED: bisacodyL 10 MG SUPP PR PRN (11:17)
[2024-04-26] MEDS ORDERED: ACETAMINOPHEN 325 MG TAB PO PRN (11:17)
--- NOTE | 2024-04-28 08:30 | Discharge Summary ---
Date of Service April 28, 2024 Admission HPI Per Admitting Provider Juvenile Probation Officer used for duration of visit and consent 23 yo presents for preop for planned repeat CS at 39+ weeks. 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 Postop course was uncomplicated and she was discharged home on pod2 Coding Level of Care Code None Diagnoses Previous section Z98.891
== END 2024-04-26 16:20 | disposition home or self-care (01) | DRG 788 ==
LOC: EDSTATUS 07:30 → 4S1 08:58 → 4E2 14:07
DX: O34.211 Maternal care for low transverse scar from previous cesarean delivery; Z37.0 Single live birth; Z3A.39 39 weeks gestation of pregnancy